=== PATIENT | female | born 1960 | race Caucasian/White ===

== ENCOUNTER 2016-11-09 19:46 | Emergency (ER) | payer MEDICAID, MEDICARE, OTHER ==
[~2016-11-09 19:46] MED LIST: ATEN25TA PO; CYMB60CA3 PO; DOCU10CA PO; DOCU10ELUD PO; FERR325T3 PO; GABA300C2 PO; GLIP5TAB2 PO; LEVO500T32 PO; PERC5TAB PO; TRAZ100T2 PO; TYLE325T5 PO
[2016-11-09] MEDS ORDERED: TRAD5TAB PO (19:58)
[2016-11-09] MEDS ORDERED: NEUR600T PO (19:58)
[2016-11-09] MEDS ORDERED: ASPI81TA85 PO (19:58)
[2016-11-09] MEDS ORDERED: NORCO, ANEXSIA 5/325MG TABLET (HYDROcodone/ACETAMINOPHEN) PO ONE (20:00)
--- NOTE | 2016-11-09 21:40 | REPUSA ---
CT of the head Clinical history: Trauma. Technique: Multiple axial CT images were obtained through the head without administration of contrast . Comparison: None. Findings: The ventricles and sulci are symmetric bilaterally. A left cerebellar arachnoid cyst is not ed. There is no evidence of acute hemorrhage or infarct. There is no midline shift, mass effect, or e xtra-axial fluid collection. The osseous structures are unremarkable. The visualized paranasal sinuse s and mastoid air cells are clear. Impression: Negative study.
--- NOTE | 2016-11-09 21:40 | REPUSA ---
CT of the cervical spine Clinical history: Pain. Technique: Multiple axial CT images were obtained through the cervical spine without administration o f contrast. Coronal and sagittal 3-D reconstructed images were also obtained. Comparison: None. Findings: The cervical vertebral bodies are in satisfactory positioning and alignment. No fractures or dislocat ions are demonstrated. The odontoid process is intact. Intervertebral disc spaces are well-maintained . Minimal disc osteophyte complexes are seen at C4/C5 and C5/C6. There is no evidence of facet sublux ation. The neural foramen appear grossly patent. The cervical cranial junction is intact. The cervica l spinal canal demonstrates normal caliber and contour without evidence of spinal stenosis. The surro unding soft tissues are within normal limits. Impression: No acute fracture or traumatic injury. Mild spondylosis.
[2016-11-09 22:10] VITALS: BP 148/81
--- NOTE | 2016-11-10 08:39 | REP ---
Right knee series: AP and lateral study. History: Trauma. Findings: AP and lateral views are obtained as requested. These show normal bones, joints, and soft tissues. No fracture or subluxation is seen. Impression: Negative two-view right knee series. Signed by Jeff Ace MD 11/10/2016 12:57 P
== END 2016-11-09 22:12 | disposition home or self-care (01) ==
LOC: EDBD 19:46 → M ED 20:43
DX: S00.93XA Contusion of unspecified part of head, initial encounter (principal); S80.11XA Contusion of right lower leg, initial encounter; W08.XXXA Fall from other furniture, initial encounter; Y92.099 Unspecified place in other non-institutional residence as the place of occurrence of the external cause; Y93.9 Activity, unspecified; Y99.9 Unspecified external cause status; M47.892 Other spondylosis, cervical region; E11.9 Type 2 diabetes mellitus without complications; I10 Essential (primary) hypertension; F32.9 Major depressive disorder, single episode, unspecified; Z79.82 Long term (current) use of aspirin; Z79.84 Long term (current) use of oral hypoglycemic drugs; Z79.899 Other long term (current) drug therapy; Z88.8 Allergy status to other drugs, medicaments and biological substances

== ENCOUNTER 2017-03-14 16:37 | Emergency (ER) | payer MEDICAID, MEDICARE, OTHER ==
[~2017-03-14] VITALS: Ht 167.6 cm; Wt 100.0 kg
[~2017-03-14 16:37] MED LIST changes: +ASPI81TA85 PO; +LEVO500T3 PO; -LEVO500T32 PO; +NEUR600T PO; +TRAD5TAB PO
[2017-03-14 19:23] LABS: MEAN CORPUSCULAR HEMOGLOBIN 29.3 pg (27.0-33.0); MEAN CORPUSCULAR HGB CONC 33.2 g/dl (32.0-36.5); MEAN CORPUSCULAR VOLUME 88.3 fl (80.0-96.0); RED CELL DISTRIBUTION WIDTH 12.5 % (11.5-14.5); WHITE BLOOD COUNT 8.3 10^3/uL (4.0-10.0)
[2017-03-14 19:42] LABS: METHADONE URINE NEGATIVE (NEGATIVE)
[2017-03-14 20:03] LABS: ALBUMIN 4.1 GM/DL (3.2-5.2); ALKALINE PHOSPHATASE 80 U/L (45-117); ALT/SGPT 29 U/L (12-78); ANION GAP 9 MEQ/L (8-16); AST/SGOT 20 U/L (15-37); BILIRUBIN,DIRECT < 0.1 MG/DL (0.0-0.2); BILIRUBIN,TOTAL 0.3 MG/DL (0.2-1.0); BLOOD UREA NITROGEN 15 MG/DL (7-18); CALCIUM LEVEL 8.9 MG/DL (8.5-10.1); CARBON DIOXIDE LEVEL 28 MEQ/L (21-32); CHLORIDE LEVEL 101 MEQ/L (98-107); CREATININE FOR GFR 0.89 MG/DL (0.55-1.02); GLOMERULAR FILTRATION RATE > 60.0 (>51); GLUCOSE, FASTING 115 MG/DL (70-105); POTASSIUM SERUM 4.2 MEQ/L (3.5-5.1); SODIUM LEVEL 138 MEQ/L (136-145); TOTAL PROTEIN 8.2 GM/DL (6.4-8.2)
--- NOTE | 2017-03-14 20:30 | REPUSA ---
CT of the head Clinical history: mass. Comparison: 11/09/2016 Technique: Multiple axial CT images were obtained through the head without administration of contrast . Findings: The ventricles and sulci are symmetric bilaterally. There is no evidence of acute hemorrhag e or infarct. Extra-axial fluid in the left cerebellar fossa stable. There is no midline shift or mas s effect. The osseous structures are unremarkable. The visualized paranasal sinuses and mastoid air c ells are clear. Impression: No acute findings.
[2017-03-14 21:00] VITALS: BP 142/95
== END 2017-03-14 21:03 | disposition home or self-care (01) ==
LOC: M ED 16:37
DX: F41.9 Anxiety disorder, unspecified (principal); Z79.82 Long term (current) use of aspirin; Z79.899 Other long term (current) drug therapy; Z88.8 Allergy status to other drugs, medicaments and biological substances
CPT/HCPCS: 36415; 70450; 80048; 80076; 80307; 84443; 85027; 99283; G0480

== ENCOUNTER 2017-06-04 18:19 | Emergency (ER) | payer MEDICARE, MEDICAID, OTHER ==
[2017-06-04] MEDS: NORCO, ANEXSIA 5/325MG TABLET (HYDROcodone/ACETAMINOPHEN) PO (20:58)
[2017-06-04] MEDS: NORCO 5/325MG TABLET (BULK FOR ED) PO (22:30)
== END 2017-06-04 22:41 | disposition home or self-care (01) ==
LOC: M ED 18:19
DX: M71.22 Synovial cyst of popliteal space [Baker], left knee (principal); R29.818 Other symptoms and signs involving the nervous system; I51.9 Heart disease, unspecified; H91.90 Unspecified hearing loss, unspecified ear; K21.9 Gastro-esophageal reflux disease without esophagitis; N39.9 Disorder of urinary system, unspecified; E11.9 Type 2 diabetes mellitus without complications; M54.5 Low back pain; F41.9 Anxiety disorder, unspecified; F32.9 Major depressive disorder, single episode, unspecified; Z79.82 Long term (current) use of aspirin; Z79.899 Other long term (current) drug therapy; Z88.8 Allergy status to other drugs, medicaments and biological substances
CPT/HCPCS: 73564

== ENCOUNTER → 2017-12-29 | Outpatient (REF) | payer MEDICARE, MEDICAID ==
[2017-12-30 14:27] LABS: ANTINUCLEAR ANTIBODIES DIRECT Negative (Negative)
== END ==
LOC: M LAB REF 12:08
DX: M79.606 Pain in leg, unspecified (principal); M79.603 Pain in arm, unspecified
CPT/HCPCS: 86038

== ENCOUNTER 2018-06-20 17:55 | Emergency (ER) | payer MEDICAID, MEDICARE, OTHER ==
[~2018-06-20] VITALS: Ht 160 cm; Wt 90.0 kg
[2018-06-20 17:55] VITALS: BP 161/71
[~2018-06-20 17:55] MED LIST changes: +NAPR-50 PO
[2018-06-20] MEDS ORDERED: ACETAMINOPHEN 325 MG TAB PO ONE (19:00)
--- NOTE | 2018-06-21 06:34 | REP ---
Left ankle: Four views. History: Pain after fall. Findings: Four views of the left ankle demonstrate an intact ankle mortise. There is a large plantar calcaneal spur and a fairly large Achilles calcaneal spur is noted. There is also spurring at the posterior aspect of the subtalar joint. These findings are unchanged from the March 14, 2013 prior radiographs. Impression: Lateral soft tissue swelling. No fracture seen. Heel spurring as above. Electronically Signed by Jeff Ace MD 06/21/2018 08:13 A
== END 2018-06-20 19:03 | disposition home or self-care (01) ==
LOC: M ED 17:55
DX: S82.832A Other fracture of upper and lower end of left fibula, initial encounter for closed fracture (principal); W10.8XXA Fall (on) (from) other stairs and steps, initial encounter; Y92.008 Other place in unspecified non-institutional (private) residence as the place of occurrence of the external cause; E11.9 Type 2 diabetes mellitus without complications; F33.9 Major depressive disorder, recurrent, unspecified; F41.9 Anxiety disorder, unspecified; H91.90 Unspecified hearing loss, unspecified ear; Z79.899 Other long term (current) drug therapy; Z79.82 Long term (current) use of aspirin; Z88.8 Allergy status to other drugs, medicaments and biological substances

== ENCOUNTER 2019-02-17 00:36 | Emergency (ER) | payer MEDICARE ==
[~2019-02-17] VITALS: Ht 160 cm; Wt 81.8 kg
[~2019-02-17 00:36] MED LIST changes: -DOCU10ELUD PO; +DOCU5LIQ PO; -NAPR-50 PO; +NAPR-837 PO
[2019-02-17 01:01] LABS: BASO % 0.6 % (0.0-1.0); EOS # 0.1 10^3/uL (0.0-0.5); EOS % 1.3 % (0.0-3.0); HEMATOCRIT 37.7 % (36.0-47.0); HEMOGLOBIN 12.9 g/dl (12.0-15.5); LYMPH # 4.1 10^3/uL (1.5-5.0); LYMPH % 56.8 % (24.0-44.0); MEAN CORPUSCULAR HEMOGLOBIN 30.5 pg (27.0-33.0); MEAN CORPUSCULAR HGB CONC 34.2 g/dl (32.0-36.5); MEAN CORPUSCULAR VOLUME 89.1 fl (80.0-96.0); MONO # 0.6 10^3/uL (0.0-0.8); MONO % 7.7 % (0.0-5.0); NEUTROPHILS # 2.4 10^3/uL (1.5-8.5); NEUTROPHILS % 33.5 % (36.0-66.0); PLATELET COUNT, AUTOMATED 259 10^3/uL (150-450); RED BLOOD COUNT 4.23 10^6/uL (4.00-5.40); WHITE BLOOD COUNT 7.2 10^3/uL (4.0-10.0)
[2019-02-17 01:16] LABS: INR 0.95; PROTHROMBIN TIME 12.4 SECONDS (11.8-14.0)
[2019-02-17 01:38] LABS: BLOOD UREA NITROGEN 14 MG/DL (7-18); CALCIUM LEVEL 9.7 MG/DL (8.8-10.2); CARBON DIOXIDE LEVEL 27 MEQ/L (21-32); CHLORIDE LEVEL 102 MEQ/L (98-107); CREATININE FOR GFR 0.93 MG/DL (0.55-1.30); GLOMERULAR FILTRATION RATE > 60.0 (>45); GLUCOSE, FASTING 164 MG/DL (70-100); POTASSIUM SERUM 3.7 MEQ/L (3.5-5.1); SODIUM LEVEL 137 MEQ/L (136-145)
[2019-02-17 01:44] LABS: ALBUMIN 3.8 GM/DL (3.2-5.2); ALT/SGPT 27 U/L (12-78); BILIRUBIN,DIRECT 0.2 MG/DL (0.0-0.2); BILIRUBIN,TOTAL 0.5 MG/DL (0.2-1.0); CK-MB VALUE MASS 1.4 NG/ML (<3.6); CPK CREATINE PHOSPHOKINASE 122 U/L (26-192); LIPASE 174 U/L (73-393); MB/CK RELATIVE INDEX 1.15 (< OR =4); TOTAL PROTEIN 7.8 GM/DL (6.4-8.2); TROPONIN I < 0.02 NG/ML (< 0.10)
[2019-02-17] MEDS ORDERED: ISOVUE-370 76% 100ML VIAL (Q9967) As Ordered ONE (02:06)
[2019-02-17] MEDS ORDERED: NITROGLYCERIN 0.4 MG SUBL TABLET SL STA (03:03)
[2019-02-17 03:33] VITALS: BP 105/65
--- NOTE | 2019-02-17 04:24 | REPVR ---
EXAM: CT Angiography Chest With Contrast EXAM DATE/TIME: 02/17/2019 1:49 AM CLINICAL HISTORY: 58 years old, female; Chest pain; Type not specified TECHNIQUE: Imaging protocol: Computed tomographic angiography of the chest with intravenous contrast. 3D rendering: MIP reconstructed images were created and reviewed. Radiation optimization: All CT scans at this facility use at least one of these dose optimization techniques: automated exposure control; mA and/or kV adjustment per patient size (includes targeted exams where dose is matched to clinical indication); or iterative reconstruction. Contrast material: ISO; Contrast volume: 75 ml; Contrast route: AC; COMPARISON: CR PORTABLE CHEST X-RAY 02/17/2019 12:59 AM FINDINGS: Limitations: There is motion artifact. Pulmonary arteries: Assessment is limited in some locations due to motion artifact, especially in the bilateral lower lobes. The central pulmonary arteries are borderline in size, with the pulmonary trunk measuring 3.0 cm in diameter. No filling defects are seen to indicate an acute pulmonary embolism. Aorta: The aorta demonstrates mild atherosclerotic calcification. The contrast bolus was not timed for optimal assessment of the thoracic aorta, but there is no sign of thoracic aortic dissection. Lungs: Motion artifact limits the assessment of the lungs. There is mild diffuse groundglass opacity in the lungs, with geographic lucencies, especially in the bilateral upper lobes. 2 small calcified granulomata are noted in the left upper lobe. Lung volumes are relatively shallow bilaterally. There is a band of density in the right middle cannot also visible on the x-ray, which may be atelectasis or scar. Pleural space: There are no pleural effusions present. Heart: The heart is normal in size. Gallbladder and bile ducts: There has been a cholecystectomy. Lymph nodes: No lymphadenopathy is seen. Bones/joints: Mild degenerative endplate changes are noted in the visualized spine. Soft tissues: Unremarkable. Other findings: Pneumonitis. IMPRESSION: 1. Examination significantly limited by motion artifact. Although no definite filling defects are seen to indicate acute pulmonary embolism, pulmonary emboli could be missed, especially in the bilateral lower lobes. 2. Low lung volumes. Mild diffuse ground glass opacity in the lungs with areas of geographic lucency may be related to incomplete expansion of the lungs with areas of air trapping, or may be a mild pneumonitis with areas of sparing. Electronically signed by: Christina De Luna On 02/17/2019 04:23:46 AM
[2019-02-17 07:05] LABS: CK-MB VALUE MASS 1.1 NG/ML (<3.6); CPK CREATINE PHOSPHOKINASE 94 U/L (26-192); MB/CK RELATIVE INDEX 1.17 (< OR =4); TROPONIN I < 0.02 NG/ML (< 0.10)
[2019-02-17 07:30] VITALS: BP 111/57
[2019-02-17] MEDS ORDERED: ASPI81TA85 PO (07:30)
--- NOTE | 2019-02-17 09:19 | REP ---
CHEST, SINGLE VIEW: Single view of the chest is performed. There is mild elevation of the right hemidiaphragm. There is linear fibroatelectatic change in each lung base without consolidative infiltrate. The heart is not enlarged. Mediastinal silhouette is unremarkable. IMPRESSION: Mild bibasilar fibroatelectatic change without acute infiltrate. Electronically Signed by Derrick Travis MD 02/17/2019 11:39 A
--- NOTE | 2019-02-17 20:25 | ECGEPIP ---
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
--- NOTE | 2019-02-17 20:29 | ECGEPIP ---
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
--- NOTE | 2019-02-22 12:51 | ED PDOC ---
Post-Departure Follow-Up noel oconnell faxed formal report of cta chest for fu Todd Bass MD Feb 22, 2019 12:51
== END 2019-02-17 07:42 | disposition home or self-care (01) ==
LOC: EEVIPCON 00:36 → EDBD 00:36 → M ED 00:36
DX: R07.9 Chest pain, unspecified (principal); E11.9 Type 2 diabetes mellitus without complications; K21.9 Gastro-esophageal reflux disease without esophagitis; F32.9 Major depressive disorder, single episode, unspecified; Z87.891 Personal history of nicotine dependence; Z88.8 Allergy status to other drugs, medicaments and biological substances; Z79.82 Long term (current) use of aspirin; Z79.899 Other long term (current) drug therapy
CPT/HCPCS: 71045; 71275; 80048; 80076; 81001; 82550; 82553; 83690; 84484; 85025; 85610; 93005; 93041; 94760; 99285; Q9967

== ENCOUNTER → 2019-03-09 | Outpatient (CLI) | payer MEDICARE ==
[~2019-03-09] MED LIST changes: +ISOVUE-370 76% 100ML VIAL (Q9967) As Ordered ONE
--- NOTE | 2019-03-09 17:36 | REP ---
CT of the chest with IV contrast: Comparison are 02/17/2019 and 1`07/03/08. There are no emboli in the pulmonary trunk or central pulmonary arteries. There are no emboli in the pulmonary lobe or segment branches. There is a focal ground-glass density inferiorly in the anterior segment right upper lobe, similar to the prior study. On the sagittal coronal reformats. This has the appearance of discoid atelectasis versus ensuing parenchymal scarring. It is unchanged from the comparison study. There is a very small ground-glass density at the inferior tip of the lingula, also having the appearance of discoid atelectasis on the sagittal coronal reformats, versus ensuing parenchymal scarring. There are no other infiltrates. No pleural effusions. There are no masses or nodules. Lung roman otherwise clear. The thoracic aorta is unremarkable. Cardiac size is normal. There is no pericardial effusion. There is no mediastinal or hilar lymphadenopathy. There is an enlarged node in the left axilla measuring 10 mm short axis. This node measured 8 mm on 02/17/2019 and 7 mm on 05/03/2009. Mammography is recommended for follow up. The visualized upper abdominal contents are unremarkable except that there are surgical clips in the gallbladder fossa. Impression: There are no pulmonary emboli. Discoid atelectasis inferiorly in the anterior segment of the right upper lobe versus ensuing parenchymal scarring. Small focal zone of discoid atelectasis versus ensuing parenchymal scarring at the inferior tip of the lingula. There is an enlarged node in the left axilla as described. Recommend mammography for follow up. Cholecystectomy. Electronically Signed by Derrick Garcia MD 03/09/2019 05:28 P
== END ==
LOC: M RAD 15:39
PROVIDERS: ATTEND Nurse Practitioner Adult Health
DX: R91.8 Other nonspecific abnormal finding of lung field (principal)
CPT/HCPCS: 71260; Q9967

== ENCOUNTER → 2019-08-11 | Outpatient (CLI) | payer MEDICARE ==
[~2019-08-11] MED LIST changes: -ISOVUE-370 76% 100ML VIAL (Q9967) As Ordered ONE
== END ==
LOC: M LAB 11:19
PROVIDERS: ATTEND Nurse Practitioner Adult Health
DX: M79.661 Pain in right lower leg (principal)

== ENCOUNTER 2020-09-23 19:48 | Emergency (ER) | payer MEDICARE ==
[~2020-09-23] VITALS: Ht 160 cm; Wt 84.5 kg
[~2020-09-23 19:48] MED LIST changes: -ASPI81TA85 PO; +ASPI81TA86 PO
[2020-09-23 20:00] VITALS: BP 115/61
[2020-09-23 20:30] LABS: BASO # 0.1 10^3/uL (0.0-0.2); BASO % 0.8 % (0.0-1.0); EOS # 0.2 10^3/uL (0.0-0.5); EOS % 3.3 % (0.0-3.0); HEMATOCRIT 37.6 % (36.0-47.0); HEMOGLOBIN 12.2 g/dl (12.0-15.5); LYMPH # 2.9 10^3/uL (1.5-5.0); LYMPH % 43.7 % (24.0-44.0); MEAN CORPUSCULAR HGB CONC 32.4 g/dl (32.0-36.5); MEAN CORPUSCULAR VOLUME 92.6 fl (80.0-96.0); MONO # 0.6 10^3/uL (0.0-0.8); NEUTROPHILS # 2.8 10^3/uL (1.5-8.5); NEUTROPHILS % 42.9 % (36.0-66.0); PLATELET COUNT, AUTOMATED 275 10^3/uL (150-450); RED BLOOD COUNT 4.06 10^6/uL (4.00-5.40); WHITE BLOOD COUNT 6.6 10^3/uL (4.0-10.0)
--- NOTE | 2020-09-23 20:32 | REPVR ---
PROCEDURE INFORMATION: Exam: XR Chest Exam date and time: 09/23/2020 8:14 PM Age: 60 years old Clinical indication: Chest pain; Type not specified TECHNIQUE: Imaging protocol: XR of the chest. Views: 1 view. COMPARISON: CT Chest with contrast 03/09/2019 3:58 PM FINDINGS: Lungs: Unremarkable. No consolidation. Pleural spaces: Unremarkable. No pleural effusion. No pneumothorax. Heart/Mediastinum: Unremarkable. No cardiomegaly. Bones/joints: Unremarkable. IMPRESSION: No acute findings. Electronically signed by: Jonatan Ortiz On 09/23/2020 20:32:42 PM
[2020-09-23] MEDS ORDERED: NITROGLYCERIN 0.4 MG SUBL TABLET SL STA (20:38)
[2020-09-23] MEDS ORDERED: ASPIRIN 81 MG CHEW TABLET PO ONE (20:40)
[2020-09-23 20:44] LABS: BLOOD UREA NITROGEN 13 MG/DL (7-18); CALCIUM LEVEL 8.6 MG/DL (8.8-10.2); CARBON DIOXIDE LEVEL 30 MEQ/L (21-32); CHLORIDE LEVEL 102 MEQ/L (98-107); CK-MB VALUE MASS 2.8 NG/ML (<3.6); CPK CREATINE PHOSPHOKINASE 188 U/L (26-192); CREATININE FOR GFR 0.88 MG/DL (0.55-1.30); GLOMERULAR FILTRATION RATE > 60.0 (>45); GLUCOSE, FASTING 137 MG/DL (70-100); MB/CK RELATIVE INDEX 1.49 (< OR =4); SODIUM LEVEL 139 MEQ/L (136-145); TROPONIN I < 0.02 NG/ML (< 0.10)
--- NOTE | 2020-09-23 20:54 | REPVR ---
PROCEDURE INFORMATION: Exam: CT Head Without Contrast Exam date and time: 09/23/2020 8:42 PM Age: 60 years old Clinical indication: Dizziness TECHNIQUE: Imaging protocol: Computed tomography of the head without contrast. Radiation optimization: All CT scans at this facility use at least one of these dose optimization techniques: automated exposure control; mA and/or kV adjustment per patient size (includes targeted exams where dose is matched to clinical indication); or iterative reconstruction. COMPARISON: CT Head without contrast 03/14/2017 8:04 PM FINDINGS: Brain: Redemonstration of fluid mass in extra-axial space on the left of the posterior fossa. Findings compatible with a arachnoid cyst. This mass effect on the left cerebellar hemisphere with 4 mm of [id number] midline shift. Findings are stable. There is mild diffuse cerebellar atrophy. Cerebral ventricles: No ventriculomegaly. Bones/joints: Unremarkable. No acute fracture. Paranasal sinuses: Visualized sinuses are unremarkable. No fluid levels. Mastoid air cells: Visualized mastoid air cells are well aerated. Soft tissues: Unremarkable. IMPRESSION: 1. Redemonstration of fluid mass in extra-axial space on the left of the posterior fossa. Findings compatible with a arachnoid cyst. This mass effect on the left cerebellar hemisphere with 4 mm of [id number] midline shift. Findings are stable. 2. There is mild diffuse cerebellar atrophy. 3. No acute intracranial findings. Electronically signed by: Jonatan Ortiz On 09/23/2020 20:54:27 PM
--- NOTE | 2020-09-24 09:28 | ECGEPIP ---
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
== END 2020-09-24 00:03 | disposition left against medical advice (07) ==
LOC: M ED 19:48
DX: R07.9 Chest pain, unspecified (principal); Z53.20 Procedure and treatment not carried out because of patient's decision for unspecified reasons; E11.9 Type 2 diabetes mellitus without complications; Z88.8 Allergy status to other drugs, medicaments and biological substances

== ENCOUNTER → 2020-09-28 | Outpatient (REF) | payer MEDICARE, OTHER, MEDICAID ==
[2020-09-28 18:29] LABS: VITAMIN B12 LEVEL 347 PG/ML (247-911)
== END ==
LOC: M LAB REF 16:42
PROVIDERS: ATTEND Nurse Practitioner Adult Health
DX: R41.3 Other amnesia (principal)

== ENCOUNTER 2021-04-10 01:20 | Emergency (ER) | payer MEDICARE, MEDICAID ==
[~2021-04-10] VITALS: Ht 91.4 cm; Wt 84.1 kg
--- OUTSIDE RECORDS SUMMARY | 2021-04-10 01:30 | CCD ---
Continuity of Care Document (CCD) Created on: 01/22/2021 Sherron Lomas External Reference #: [id number] : 1960 Sex: Female Author Author Kelechi Fischer Sherron L Organization Unknown Address [address] [place] [address] Phone [phone] Care Team Providers Care Instructor Kindergarten Name Role Phone Mercedez Torres AUTM [phone] Problems Active Problems Provider Date Altered mental status Justina Grace M.D. Onset: 10/25/2020 Social History Type Date Description Comments Sex Unknown Allergies, Adverse Reactions, Alerts Active Allergies Reaction Severity Comments Date Metformin 10/25/2020 Medications Active Medications SIG Qnty Indications Ordering Provide r Date Aspirin [address] 1 by mouth every day Unknown Immunizations Description No Information Available Vital Signs Date Vital Result Comment 10/25/2020 2:58pm Height 63 inches 5'3" Weight 189.00 lb BMI (Body Mass Index) 33.5 kg/m2 [place] Body Weight 115 lb Results Description No Information Available Procedures Date Code Description Status 12/12/2020 92818 EEG Recording Awake & Asleep Com pleted 12/12/2020 01029 EEG Recording Awake & Asleep Com pleted 10/25/2020 62375 Office/Outpatient New Moderate M DM 45-59 Minutes Completed Medical Devices Description No Information Available Encounters Type Date Location Provider Dx Diagnosis Office Visit 10/25/2020 12:00p Main office - [place] Justina Grace M.D. 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 12/12/2020 R41.82 Altered mental status, unspecifi ed EEG 12/12/2020 R55 Syncope and collapse Justina cuadra M.D. 12/12/2020 R55 Syncope and collapse EEG 12/12/2020 R41.3 Other amnesia Monique Moralez 12/12/2020 R41.3 Other amnesia EEG 10/25/2020 R55 Syncope and collapse Justina cuadra M.D. 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 10/25/2020 R42 Dizziness and giddiness Justina stone M.D. 10/25/2020 G47.00 Insomnia, unspecified Justina gutiérrez M.D. 10/25/2020 R41.3 Other amnesia Monique Moralez 10/25/2020 R41.82 Altered mental status, unspecifi ed Justina Grace M.D. Plan of Treatment No Information Available Functional Status Description No Information Available Mental Status Description No Information Available Referrals Description No Information Available
--- OUTSIDE RECORDS SUMMARY | 2021-04-10 01:30 | CCD | Continuity of Care Document ---
Author Author Kelechi Fischer Sherron L Organization Unknown Address [address] [place] [address] Phone [phone] Care Team Providers Care Actimize Architect Name Role Phone MelissaMercedez AUTM [phone] Problems Active Problems Provider Date Altered mental [...] lb BMI (Body Mass Index) 33.5 kg/m2 [place] Body Weight 115 lb Results Description No Information Available Procedures Date Code Description Status 01/13/2021 10060 Polysomnography Sleep Staging 4+ Parameters Completed 12/12/2020 16538 EEG Recording Awake & Asleep Com pleted 12/12/2020 18282 EEG Recording Awake & Asleep Com pleted 10/25/2020 52528 Office/Outpatient New Moderate M DM 45-59 Minutes Completed Medical Devices Description No Information Available Encounters Type Date Location Provider Dx Diagnosis Office Visit 10/25/2020 12:00p [place] M[place] 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 01/13/2021 R06.83 Snoring Ashwin Gonzalez M.D. 12/12/2020 R41.82 Altered mental status, unspecifi [...]
--- OUTSIDE RECORDS SUMMARY | 2021-04-10 01:31 | CCD ---
Author Author [facility] Organization [facility] Address Unknown Phone Unavailable Care Team Providers Care Geospatial Information Scientist Name Role Phone ANISA MITCHELL MD Unavailable Unavailable ANISA MITCHELL MD Unavailable Unavailable ANISA MITCHELL MD Unavailable Unavailable ANISA MITCHELL MD Unavailable Unavailable ANISA MITCHELL MD Unavailable Unavailable ANISA MITCHELL MD Unavailable Unavailable ANISA MITCHELL MD Unavailable Unavailable ANISA MITCHELL MD Unavailable Unavailable ANISA MITCHELL MD Unavailable Unavailable ANISA MITCHELL MD Unavailable Unavailable ANISA MITCHELL MD Unavailable Unavailable ANISA MITCHELL MD Unavailable Unavailable ANISA MITCHELL MD Unavailable Unavailable ANISA MITCHELL MD Unavailable Unavailable ANISA MITCHELL MD Unavailable Unavailable ANISA MITCHELL MD Unavailable Unavailable ANISA MITCHELL MD Unavailable Unavailable ANISA MITCHELL MD Unavailable Unavailable ANISA MITCHELL MD Unavailable Unavailable ANISA MITCHELL MD Unavailable Unavailable ANISA MITCHELL MD Unavailable Unavailable ANISA MITCHELL MD Unavailable Unavailable ANISA MITCHELL MD Unavailable Unavailable ANISA MITCHELL MD Unavailable Unavailable ANISA MITCHELL MD Unavailable Unavailable ANISA MITCHELL MD Unavailable Unavailable ANISA MITCHELL MD Unavailable Unavailable ANISA MITCHELL MD Unavailable Unavailable ANISA MITCHELL MD Unavailable Unavailable ANISA MITCHELL MD Unavailable Unavailable ANISA MITCHELL MD Unavailable Unavailable ANISA MITCHELL MD Unavailable Unavailable ANISA MITCHELL MD Unavailable Unavailable ANISA MITCHELL MD Unavailable Unavailable ANISA MITCHELL MD Unavailable Unavailable ANISA MITCHELL MD Unavailable Unavailable ANISA MITCHELL MD Unavailable Unavailable ANISA MITCHELL MD Unavailable Unavailable ANISA MITCHELL MD Unavailable Unavailable ANISA MITCHELL MD Unavailable Unavailable ANISA MITCHELL MD Unavailable Unavailable ANISA MITCHELL MD Unavailable Unavailable ANISA MITCHELL MD Unavailable Unavailable LINDA, J Mercedez ANP Unavailable Unavailable LINDA, J Mercedez ANP Unavailable Unavailable LINDA, J Mercedez ANP Unavailable Unavailable LINDA, J Mercedez ANP Unavailable Unavailable LINDA, J Mercedez ANP Unavailable Unavailable LINDA, J Mercedez ANP Unavailable Unavailable LINDA, J Mercedez ANP Unavailable Unavailable LINDA, J Mercedez ANP Unavailable Unavailable LINDA, J Mercedez ANP Unavailable Unavailable LINDA, J Mercedez ANP Unavailable Unavailable LINDA, J Mercedez ANP Unavailable Unavailable LINDA, J Mercedez ANP Unavailable Unavailable LINDA, J Merceedz ANP Unavailable Unavailable LINDA, J Mercedez ANP Unavailable Unavailable LINDA, J Mercedez ANP Unavailable Unavailable LINDA, J Mercedez ANP Unavailable Unavailable LINDA, J Mercedez ANP Unavailable Unavailable LINDA, J Mercedez ANP Unavailable Unavailable LINDA, J Mercedez ANP Unavailable Unavailable LINDA, J Mercedez ANP Unavailable Unavailable LINDA, J Mercedez ANP Unavailable Unavailable LINDA, J Mercedez ANP Unavailable Unavailable LINDA, J Mercedez ANP Unavailable Unavailable LINDA, J Mercedez ANP Unavailable Unavailable LINDA, J Mercedez ANP Unavailable Unavailable LINDA, J Mercedez ANP Unavailable Unavailable LINDA, J Mercedez ANP Unavailable Unavailable LINDA, J Mercedez ANP Unavailable Unavailable LINDA, J Mercedez ANP Unavailable Unavailable LINDA, J Mercedez ANP Unavailable Unavailable LINDA, J Mercedez ANP Unavailable Unavailable LINDA, J Mercedez ANP Unavailable Unavailable LINDA, J Mercedez ANP Unavailable Unavailable LINDA, J Mercedez ANP Unavailable Unavailable LINDA, J Mercedez ANP Unavailable Unavailable LINDA, J Mercedez ANP Unavailable Unavailable LINDA, J Mercedez ANP Unavailable Unavailable LINDA, J Mercedez ANP Unavailable Unavailable LINDA, J Mercedez ANP Unavailable Unavailable LINDA, J Mercedez ANP Unavailable Unavailable LINDA, J Mercedez ANP Unavailable Unavailable LINDA, J Mercedez ANP Unavailable Unavailable LINDA, J Mercedez ANP Unavailable Unavailable LINDA, J Mercedez ANP Unavailable Unavailable LINDA, J Mercedez ANP Unavailable Unavailable LINDA, J Mercedez ANP Unavailable Unavailable LINDA, J Mercedez ANP Unavailable Unavailable LINDA, J Mercedez ANP Unavailable Unavailable LINDA, J Mercedez ANP Unavailable Unavailable LINDA, J Mercedez ANP Unavailable Unavailable LINDA, J Mercedez ANP Unavailable Unavailable LINDA, J Mercedez ANP Unavailable Unavailable LINDA, J Mercedez ANP Unavailable Unavailable LINDA, J Mercedez ANP Unavailable Unavailable LINDA, J Mercedez ANP Unavailable Unavailable LINDA, J Mercedez ANP Unavailable Unavailable LINDA, J Mercedez ANP Unavailable Unavailable LINDA, J Mercedez ANP Unavailable Unavailable LINDA, J Mercedez ANP Unavailable Unavailable LINDA, J Mercedez ANP Unavailable Unavailable LINDA, J Mercedez ANP Unavailable Unavailable LINDA, J Mecredez ANP Unavailable Unavailable LINDA, J Mercedez ANP Unavailable Unavailable LINDA, J Mercedez ANP Unavailable Unavailable Re-disclosure Warning The records that you are about to access may contain information from federally-assisted alcohol or drug abuse programs. If such information is present, then the following federally mandated warning applies: This information has been disclosed to you from records protected by federal confidentiality rules (42 CFR part 2). The federal rules prohibit you from making any further disclosure of this information unless further disclosure is expressly permitted by the written consent of the person to whom it pertains or as otherwise permitted by 42 CFR part 2. A general authorization for the release of medical or other information is NOT sufficient for this purpose. The Federal rules restrict any use of the information to criminally investigate or prosecute any alcohol or drug abuse patient.The records that you are about to access may contain highly sensitive health information, the redisclosure of which is protected by Article 27-F of the [facility] Public Health law. If you continue you may have access to information: Regarding HIV / AIDS; Provided by facilities licensed or operated by the [facility] Office of Mental Health; or Provided by the [facility] Office for People With Developmental Disabilities. If such information is present, then the following [facility] mandated warning applies: This information has been disclosed to you from confidential records which are protected by state law. State law prohibits you from making any further disclosure of this information without the specific written consent of the person to whom it pertains, or as otherwise permitted by law. Any unauthorized further disclosure in violation of state law may result in a fine or fpc sentence or both. A general authorization for the release of medical or other information is NOT sufficient authorization for further disc losure. Family History Family Member Name Family Member Gender Family Member Status Date o f Status Description Data Source(s) Unknown Unknown Problem [facility] ([facility]) Both sons are alive, one son has Type II diabetes Encounters Encounter Providers Location Date Indications Data Source(s ) Outpatient Attender: ANISA MITCHELL MD Main office - [facility] 10/25/2020 12:00:00 PM EDT [facility] ([facility]) Outpatient Attender: Mercedez Colvin 09/2019 07:15:00 AM EST [facility] ([facility] ) Immunizations Vaccine Date Status Description Data Source(s) COVID-19 VACCINE Moderna 09/20/2020 12:00:00 AM EDT completed [facility] Vaccine Series Complete: YESThis Data wa s Submitted to [facility]. COVID-19 VACCINE Moderna 08/23/2020 12:00:00 AM EDT completed [facility] Vaccine Series Complete: NOThis Data was Submitted to [facility]. pneumococcal polysaccharide PPV23 04/11/2020 07:44:00 AM EST [place] [facility] ([facility]) Influenza, injectable, MDCK, preservative free, oli valent 04/11/2020 07:25:00 AM EST completed [facility] ([facility]) Medications Medication Brand Name Start Date Product Form Dose Route Admi nistrative Instructions Pharmacy Instructions Status Indications Reaction Description Data Source(s) Covid-19 vaccine, Unspecified 09/20/2020 12:00:00 AM EDT completed [facility] ([facility]) Medication administered onsite Covid-19 vaccine, Unspecified 08/30/2020 12:00:00 AM EDT completed [facility] ([facility]) Medication administered onsite Administration Of Flu Vaccine 04/11/2020 12:00:00 AM EST completed [facility] ([facility]) Medication administered onsite Insurance Providers Payer name Policy type / Coverage type Policy ID Covered republican ID Covered republican's relationship to ho Policy Ho Plan Information Medicare Natl Govt Servic Medicare Primary [id number] Self [id number] Medicare C [id number] SELF [id number] V78 Medicare Natl Govt Servic Medicare Primary [id number] Self [id number] Medicare Natl Govt Servic Medicare Primary [id number] Self [id number] Medicare Natl Govt Servic Medicare Primary [id number] Self [id number] Medicare Natl Govt Servic Medicare Primary [id number] Self [id number] MEDICARE [id number] SP [id number] A Medicare Natl Govt Servic Medicare Primary [id number] Self [id number] Medicare Natl Govt Servic Medicare Primary [id number] Self [id number] EXCELL MEDICARE BLUE PPO G [id number] Self [id number] WPS For Life Medigap Part B [id number] Self [id number] WPS For Life Medigap Part B [id number] Self [id number] WPS For Life Medigap Part B [id number] Self [id number] WPS For Life Medigap Part B [id number] Self [id number] WPS For Life Medigap Part B [id number] Self [id number] Todays Option Medicare Commercial [id number] Self [id number] Wellcare/Todays Optmcr Commercial [id number] Self [id number] Wellcare [employer] Health Plans F [id number] SELF [id number] Medicare C [id number] SELF [id number] V78 DME Jurisdiction A [facility] C [id number] SELF [id number] [facility] [place] [facility], [facility] C [id number] S [id number] MEDICARE [id number] SP [id number] MEDICAID [id number] SP [id number] MEDICARE [id number] SP [id number] MEDICARE [id number] SP [id number] A Medicaid Medigap Part B [id number] 01.0 Self [id number] Medicaid Medigap Part B [id number] 01.0 Self [id number] Medicaid Medigap Part B [id number] 01.0 Self [id number] MEDICARE C [id number] S [id number] A FOR LIFE UNAVAILABLE SP U NAVAILABLE MEDICAID W [id number] S [id number] MEDICARE M [id number] S [id number] A EXCELLUS BCBS P [id number] S [id number] MEDICARE BLUE PPO 306 [id number] SP [id number] SELF PAY UNAVAILABLE SP [place] [id number] SP [id number] SELF PAY UNAVAILABLE SP UNAVAILA BLE FOR LIFE [id number] WELLCARE [id number] SP [id number] WELLCARE O [id number] S [id number] MEDICAID -O/P EMERGENCY ROOM [id number] [place] [facility] [place] D [id number] SELF [id number] MEDICARE PART A -O/P [id number] 18 [id number] Medicare C [id number] SELF [id number] V78 MEDICARE C [id number] S [id number] V78 MEDICAID M [id number] S [id number] WELLCARE [id number] SP [id number] [employer] PPO [id number] SP [id number] Medicaid Medigap Part B [id number] 01.0 Self [id number] MEDICARE [id number] SP [id number] V78 TODAYS OPTIONS [id number] SP [id number] MEDICARE [id number] SP [id number] A Medicaid Medigap Part B [id number] 01.0 Self [id number] Medicaid Medigap Part B [id number] 01.0 Self [id number] [facility] UNAVAILABLE UNAVAILABLE Problems, Conditions, and Diagnoses Code Display Name Description Problem Type Effective Dates Data Source(s) [id number] Altered mental status Altered mental status Problem 10/25/2020 12:00:00 AM EDT [facility] ([facility], ) Surgeries/Procedures Procedure Description Date Indications Data Source(s) Polysomnography Sleep Staging 4+ Parameters 01/13/2021 12:00:00 AM EDT [facility] ([facility], ) ELECTROENCEPHALOGRAM W/REC AWAKE&ASLEEP 12/12/2020 12: 00:00 AM EDT [facility] ([facility], ) ELECTROENCEPHALOGRAM W/REC AWAKE&ASLEEP 12/12/2020 12: 00:00 AM EDT [facility] ([facility], ) OFFICE OUTPATIENT NEW 45 MINUTES 10/25/2020 12:00:00 A M EDT [facility] ([facility], ) Results ID Date Data Source [id number] 09/28/2020 11:50:00 AM EDT [facility] ([facility]) Name Value Range Interpretation Code Description Data Janet rce(s) Supporting Document(s) Cobalamin (Vitamin B12) [Mass/volume] in Serum or Plasma Lab oratory test result [facility] Reagin Ab [Presence] in Serum by RPR Laboratory test result [facility] ([facility]) ID Date Data Source [id number] 09/28/2020 11:49:00 AM EDT [facility] ([facility]) Name Value Range Interpretation Code Description Data Janet rce(s) Supporting Document(s) Thyrotropin [Units/volume] in Serum or Plasma by Detec tion limit <= 0.05 mIU/L 1.90 uIU/mL 0.36-3.74 [facility] ([facility] ) ID Date Data Source [id number] 09/28/2020 11:49:00 AM EDT [facility] ([facility]) Name Value Range Interpretation Code Description Data Janet rce(s) Supporting Document(s) Cholesterol in HDL [Mass/volume] in Serum or Plasma 41 mg/dL 35-60 [facility] ([facility]) Cholesterol [Mass/volume] in Serum or Plasma 191 mg/dL 131-200 [facility] ([facility]) Triglyceride [Mass/volume] in Serum or Plasma 215 mg/dL 30-150 [facility] ([facility]) Cholesterol in LDL [Mass/volume] in Serum or Plasma by calcu lation 107 CALC 50-159 [facility]) ID Date Data Source [id number] 09/28/2020 11:49:00 AM EDT [facility] ([facility]) Name Value Range Interpretation Code Description Data Janet rce(s) Supporting Document(s) Glucose [Mass/volume] in Serum or Plasma 139 mg/dL 74-99 [facility] ([facility]) 100-125 mg/dL PRE-DIABETES/FASTING >126 mg/dL DIABETES/FASTING Urea nitrogen [Mass/volume] in Serum or Plasma 19 mg/dL 7-18 [facility] ([facility]) Creatinine 0.8 mg/dL 0.6-1.3 [facility] Potassium [Moles/volume] in Serum or Plasma 4.4 meq/L 3.5-5.1 [facility] ([facility]) Sodium [Moles/volume] in Serum or Plasma 139 meq/L 136-145 [facility] ([facility]) Chloride [Moles/volume] in Serum or Plasma 103 meq/L 98-107 [facility] ([facility]) Carbon dioxide, total [Moles/volume] in Serum or Plasma 31 meq/L 21 -32 [facility] ([facility]) Calcium [Mass/volume] in Serum or Plasma 9.0 mg/dL 8.5-10.1 [facility] ([facility]) Alkaline phosphatase isoenzyme [Units/volume] in Serum or Pl asma 86 mg/dL 46-116 [facility] ([facility]) Total Bilirubin 0.2 mg/dL 0.2-1.0 [facility] ([facility]) Aspartate aminotransferase [Enzymatic activity/volume] in Serum or Plasma 21 U/L 15-37 [facility] ([facility] ) Alanine aminotransferase [Enzymatic activity/volume] in Seru m or Plasma 33 U/L 12-78 [facility] ([facility]) Proteinase 3 Ab [Units/volume] in Serum 8.0 g/dL 6.4-8.2 [facility] ([facility]) Albumin [Mass/volume] in Serum or Plasma 3.8 g/dL 3.4-5.0 [facility] ([facility]) A/G Ratio 0.90 CALC 1.00-1.90 [facility] ([facility]) Glomerular filtration rate/1.73 sq M pre dicted among non-blacks [Volume Rate/Area] in Serum or Plasma by Creatinine-based formula (MDRD) Laboratory test result [facility] ([facility] Glomerular filtration rate/1.73 sq M pre dicted among blacks [Volume Rate/Area] in Serum or Plasma by Creatinine-based formula (MDRD) Laboratory test result [facility] ([facility]) <content>CHRONIC KIDNEY DISEASE STAGING PER NKF</content>
<content></content>
<content>STAGE I & II GFR >= 60 NORMAL TO MILDLY DECREASED</content>
<content>STAGE III GFR 30-59 MODERATELY DECREASED</content>
<content>STAGE IV GFR 15-29 SEVERELY DECREASED</content>
<content>STAGE V GFR <15 VERY LITTLE GFR LEFT</content>
<content>ESRD GFR <15 ON SUSTAINABILITY PROJECT COORDINATOR</content>
<content></content> ID Date Data Source [id number] 09/28/2020 11:49:00 AM EDT [facility]) Name Value Range Interpretation Code Description Data Janet rce(s) Supporting Document(s) Glucose mean value [Mass/volume] in Blood Estimated fr om glycated hemoglobin 171 mg/dL 60-110 [facility] ([facility] ) Hemoglobin A1c/Hemoglobin.total in Blood 7.6 % [facility] ([facility]) Lab Result Notes: Pre-Diabetes 5.7 - 6.4 % Diabetes = or > 6.5% ID Date Data Source [id number] 09/28/2020 11:49:00 AM EDT [facility]) Name Value Range Interpretation Code Description Data Janet rce(s) Supporting Document(s) Leukocytes [#/volume] in Blood by Automated count 4.4 x10*3/UL 4.1-10 .9 [facility]) NOTE: CBC VERIFIED Erythrocytes [#/volume] in Blood by Automated count 4.01 x10*6/UL 4.2 0-6.30 [facility] Hemoglobin [Mass/volume] in Blood 11.9 g/dL 12.0-18.0 [facility] ([facility]) Hematocrit [Volume Fraction] of Blood by Automated count 35.0 % 3 7.0-51.0 [facility] ([facility]) MCV 87.2 fL 80.0-97.0 [facility] ([facility]) MCHC 34.1 g/dL 31.0-38.0 [facility] ([facility]) MCH 29.8 pg 26.0-32.0 [facility] ([facility]) Platelets [#/volume] in Blood by Automated count 293 x10*3/UL 140-440 [facility] ([facility] Erythrocyte distribution width [Ratio] by Automated count 12.4 % 11.6-13.7 [facility] ([facility] Lymph % 42.2 % 10.0-58.5 [facility] ([facility]) MPV 7.9 FL 7.8-11.0 [facility] ([facility]) Lymph # 1.8 x10*3/UL 0.6-4.1 [facility] ([facility]) Neut % 50.3 % 37.0-92.0 [facility] ([facility]) Mid % 7.5 % 1.7-9.3 [facility] ([facility]) Mid # 0.4 x10*3/UL 0.1-0.6 [facility] ([facility]) Neut # 2.2 x10*3/UL 2.0-7.8 [facility] ([facility]) ID Date Data Source [id number] 09/23/2020 08:55:00 PM EDT [facility] ([facility]) Name Value Range Interpretation Code Description Data Janet rce(s) Supporting Document(s) Laboratory test finding (navigational concept) 0.00 ng/mL 0.00-0.08 [facility] ([facility]) ID Date Data Source [id number] 09/23/2020 07:56:00 PM EDT [facility] ([facility]) Name Value Range Interpretation Code Description Data Janet rce(s) Supporting Document(s) Glucose, Fasting 137 mg/dL 70-100 [facility] ([facility]) Creatinine For GFR 0.88 mg/dL 0.55-1.30 [facility] ([facility]) Blood Urea Nitrogen 13 mg/dL 7-18 [facility] ([facility]) Glomerular Filtration Rate Laboratory test result [facility] ([facility]) <content>Units are mL/min/1.73 m2</content>
<content></content>
<content>Chronic Kidney Disease Staging per NKF:</content>
<content></content>
<content>Stage I & II GFR >=60 Normal to Mildly Decreased</content>
<content>Stage III GFR 30- 59 Moderately Decreased</content>
<content>Stage IV GFR 15-29 Severely Decreased</content>
<content>Stage V GFR <15 Very Little GFR Left</content>
<content>ESRD GFR <15 on SUSTAINABILITY PROJECT COORDINATOR</content>
<content></content> Chloride Level 102 meq/L 98-107 [facility] ([facility]) Sodium Level 139 meq/L 136-145 [facility] ([facility]) Potassium Serum 4.0 meq/L 3.5-5.1 [facility] ([facility]) Carbon Dioxide Level 30 meq/L 21-32 [facility] ([facility]) Anion Gap 7 meq/L 8-16 [facility]) Calcium Level 8.6 mg/dL 8.8-10.2 [facility] ([facility]) ID Date Data Source [id number] 09/23/2020 07:56:00 PM EDT [facility] ([facility]) Name Value Range Interpretation Code Description Data Janet rce(s) Supporting Document(s) CK-MB Value Mass 2.8 ng/mL [facility] ([facility]) CPK Creatine Phosphokinase 188 U/L 26-192 [facility] ([facility]) MB/CK Relative Index 1.49 [facility] ([facility]) <content>DIAGNOSIS CRITERIA</content>
<content>MMB ng/ml Relative Index (RI)</content>
<content>NON-AMI < or = 5 N/A</content>
<content>GONZALEZ ZONE > 5 < or = 4</content>
<content>AMI > 5 > 4</content>
<content></content> Troponin I Laboratory test result [facility] ([facility]) <content>Troponin I Reference Interval f or Siemens [place] LOCI:</content>
<content></content>
<content>99th Percentile= 0.00-0.045 ng/ml</content>
<content></content>
<content>Risk Stratification:</content>
<content><= 0.10 ng/ml Decreased Risk for Adverse Clinical</content>
<content>Events.</content>
<content>0.10-1.50 ng/ml Increased Risk for Adverse Clinical</content>
<content>Events. Evaluation of additional</content>
<content>criterion and/or repeat testing in 2-6</content>
<content>hours is suggested to rule out myocardial</content>
<content>damage.</content>
<content>>= 1.50 ng/ml Indicative of Myocardial Injury.</content>
<content></content> ID Date Data Source [id number] 09/23/2020 07:56:00 PM EDT [facility] ([facility]) Name Value Range Interpretation Code Description Data Janet rce(s) Supporting Document(s) White Blood Count 6.6 10 4.0-10.0 [facility] ([facility]) Red Blood Count 4.06 10 4.00-5.40 [facility] ([facility]) Hematocrit 37.6 % 36.0-47.0 [facility] Hemoglobin 12.2 g/dL 12.0-15.5 [facility]) Mean Corpuscular Hemoglobin 30.0 pg 27.0-33.0 [facility] ([facility]) Mean Corpuscular Volume 92.6 fl 80.0-96.0 [facility] ([facility]) Platelet Count, Automated 275 10 150-450 [facility] ([facility]) Red Cell Distribution Width 12.4 % 11.5-14.5 ME DENT ([facility]) Mean Corpuscular HGB Conc 32.4 g/dL 32.0-36.5 MEDE NT ([facility]) Neutrophils % 42.9 % 36.0-66.0 MEDENT ([facility]) Lymph % 43.7 % 24.0-44.0 [facility] Eos % 3.3 % 0.0-3.0 [facility]) [place] % 9.0 % 2.0-8.0 [facility]) Baso % 0.8 % 0.0-1.0 [facility]) Immature Granulocyte % 0.3 % 0-3.0 MEDENT ([facility]) Nucleated Red Blood Cell % 0.0 % 0-0 MED ENT ([facility]) Lymph # 2.9 10 1.5-5.0 [facility]) Neutrophils # 2.8 10 1.5-8.5 [facility] ([facility]) [place] # 0.6 10 0.0-0.8 [facility]) Eos # 0.2 10 0.0-0.5 [facility]) Baso # 0.1 10 0.0-0.2 [facility]) ID Date Data Source [id number] 04/24/2020 12:00:00 AM EST [facility] Patient Name:HOLLIE TROTTER51[id number] Date of : 1960 301 Date of Exam: 04/24/2020KATE Scott [id number]#: Fax: [phone] EXAM: US EXTREMITY, NON-VASCULAR (ST MASS) LIMITEDCLINICAL INFORMATION: Assess for soft tissue mass.Ultrasonography of the posterior left knee in the popliteal fossa.Ultrasonographic evaluation over the region of interest shows a 5.7 x 1.9 x2.8 cm somewhat complex appearing mixed echo cystic structure consistentwith a Chand's cyst.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.Accredited by the [employer] in General Ultrasound.ETHAN Guevara/Vicky you for referring HOLLIE TROTTER to our office.Electronically Signed - MARIE TOSCANO DO 04/25/20 16:07 Name Value Range Interpretation Code Description Data Janet rce(s) Supporting Document(s) ID Date Data Source [id number] 04/11/2020 08:45:00 AM EST MEDENT ([facility]) Name Value Range Interpretation Code Description Data Janet rce(s) Supporting Document(s) Microalbumin Urine 7.5 mg/L 1.3-20.0 [facility] Microalb/Creat Ratio 5.1 ug/mg 0.0-30.0 [facility] Urine Creatinine 148.2 mg/dL 30.0-125.0 MEDENT ([facility]) ID Date Data Source [id number] 04/11/2020 08:45:00 AM EST MEDENT ([facility]) Name Value Range Interpretation Code Description Data Janet rce(s) Supporting Document(s) Cholesterol [Mass/volume] in Serum or Plasma 190 mg/dL 131-200 MEDENT ([facility]) Triglyceride [Mass/volume] in Serum or Plasma 128 mg/dL 30-150 MEDENT ([facility]) Cholesterol in LDL [Mass/volume] in Serum or Plasma by calcu lation 112 CALC 50-159 MEDENT ([facility]) Cholesterol in HDL [Mass/volume] in Serum or Plasma 52 mg/dL 35-60 MEDENT ([facility]) ID Date Data Source [id number] 04/11/2020 08:45:00 AM EST MEDENT ([facility]) Name Value Range Interpretation Code Description Data Janet rce(s) Supporting Document(s) Glucose [Mass/volume] in Serum or Plasma 228 mg/dL 74-99 MEDENT ([facility]) 100-125 mg/dL PRE-DIABETES/FASTING >126 mg/dL DIABETES/FASTING Urea nitrogen [Mass/volume] in Serum or Plasma 10 mg/dL 7-18 MEDENT ([facility]) Creatinine 0.9 mg/dL 0.6-1.3 MEDENT ([facility]) Sodium [Moles/volume] in Serum or Plasma 141 meq/L 136-145 MEDENT ([facility]) Chloride [Moles/volume] in Serum or Plasma 103 meq/L 98-107 MEDENT ([facility]) Potassium [Moles/volume] in Serum or Plasma 4.4 meq/L 3.5-5.1 MEDENT ([facility]) Carbon dioxide, total [Moles/volume] in Serum or Plasma 29 meq/L 21 -32 MEDENT ([facility]) Calcium [Mass/volume] in Serum or Plasma 8.8 mg/dL 8.5-10.1 MEDENT ([facility]) Alkaline phosphatase isoenzyme [Units/volume] in Serum or Pl asma 66 mg/dL 46-116 MEDENT ([facility]) Total Bilirubin 0.3 mg/dL 0.2-1.0 MEDENT ([facility]) Aspartate aminotransferase [Enzymatic activity/volume] in Serum or Plasma 16 U/L 15-37 MEDENT ([facility] ) Albumin [Mass/volume] in Serum or Plasma 3.7 g/dL 3.4-5.0 [facility] Alanine aminotransferase [Enzymatic activity/volume] in Seru m or Plasma 25 U/L 12-78 [facility] Proteinase 3 Ab [Units/volume] in Serum 7.1 g/dL 6.4-8.2 [facility] A/G Ratio 1.09 CALC 1.00-1.90 [facility]) Glomerular filtration rate/1.73 sq M pre dicted among non-blacks [Volume Rate/Area] in Serum or Plasma by Creatinine-based formula (MDRD) Laboratory test result [facility] Glomerular filtration rate/1.73 sq M pre dicted among blacks [Volume Rate/Area] in Serum or Plasma by Creatinine-based formula (MDRD) Laboratory test result [facility] ([facility]) <content>CHRONIC KIDNEY DISEASE STAGING PER NKF</content>
<content></content>
<content>STAGE I & II GFR >= 60 NORMAL TO MILDLY DECREASED</content>
<content>STAGE III GFR 30-59 MODERATELY DECREASED</content>
<content>STAGE IV GFR 15-29 SEVERELY DECREASED</content>
<content>STAGE V GFR <15 VERY LITTLE GFR LEFT</content>
<content>ESRD GFR <15 ON SUSTAINABILITY PROJECT COORDINATOR</content>
<content></content> ID Date Data Source [id number] 04/11/2020 08:45:00 AM EST [facility] Name Value Range Interpretation Code Description Data Janet rce(s) Supporting Document(s) Hemoglobin A1c/Hemoglobin.total in Blood 7.3 % [facility] ([facility]) Lab Result Notes: Pre-Diabetes 5.7 - 6.4 % Diabetes = or > 6.5% Glucose mean value [Mass/volume] in Blood Estimated fr om glycated hemoglobin 163 mg/dL 60-110 [facility] ([facility] ) ID Date Data Source [id number] 04/11/2020 08:45:00 AM EST [facility]) Name Value Range Interpretation Code Description Data Janet rce(s) Supporting Document(s) Erythrocytes [#/volume] in Blood by Automated count 4.16 x10*6/UL 4.2 0-6.30 MEDENT ([facility]) Leukocytes [#/volume] in Blood by Automated count 4.8 x10*3/UL 4.1-10 .9 MED[facility] ([facility]) Hemoglobin [Mass/volume] in Blood 12.4 g/dL 12.0-18.0 MED[facility] ([facility]) Hematocrit [Volume Fraction] of Blood by Automated count 35.6 % 3 7.0-51.0 MED[facility] ([facility]) MCH 29.7 pg 26.0-32.0 [facility] MCV 85.5 fL 80.0-97.0 MED[facility] ([facility]) MCHC 34.8 g/dL 31.0-38.0 MED[facility] ([facility]) Platelets [#/volume] in Blood by Automated count 277 x10*3/UL 140-440 [facility] Erythrocyte distribution width [Ratio] by Automated count 12.2 % 11.6-13.7 MED[facility] ([facility]) Lymph % 35.3 % 10.0-58.5 [facility]) Mid % 7.1 % 1.7-9.3 MED[facility] ([facility]) MPV 8.4 FL 7.8-11.0 MED[facility] ([facility]) Lymph # 1.7 x10*3/UL 0.6-4.1 [facility] ([facility]) Neut % 57.6 % 37.0-92.0 [facility]) Mid # 0.4 x10*3/UL 0.1-0.6 MED[facility] ([facility]) Neut # 2.7 x10*3/UL 2.0-7.8 MED[facility] ([facility]) ID Date Data Source [id number] 04/11/2020 08:45:00 AM EST MEDENT ([facility]) Name Value Range Interpretation Code Description Data Janet rce(s) Supporting Document(s) Hemoglobin A1c/Hemoglobin.total in Blood Laboratory test result [facility] ([facility]) Procedure Social History No Information Vital Signs ID Date Data Source UNK Name Value Range Interpretation Code Description Data Source(s) Body height 63 [in_i] 63 [in_i] MEDENT ([facility], ) 5'3" Body weight 189.00 [lb_av] 189.00 [lb_av] MEDEN T ([facility], ) Body mass index (BMI) [Ratio] 33.5 kg/m2 33.5 k g/m2 [facility] ([facility]) [place] body weight 115 [lb_av] 115 [lb_av] MEDEN T ([facility], ) Heart rate 76 /min 76 /min [facility]) Body height 64 [in_i] 64 [in_i] [facility] ([facility]) 5'4" Body weight 190.00 [lb_av] 190.00 [lb_av] MEDEN T ([facility]) Oxygen saturation in Arterial blood by Pulse oximetry 98 % 98 % [facility] ([facility]) Body mass index (BMI) [Ratio] 32.6 kg/m2 32.6 k g/m2 [facility] ([facility]) Systolic blood pressure 122 mm[Hg] 122 mm[Hg] M EDENT ([facility]) Diastolic blood pressure 70 mm[Hg] 70 mm[Hg] [facility] ([facility]) Body mass index (BMI) [Ratio] 32.1 kg/m2 32.1 k g/m2 [facility] ([facility]) Body height 64 [in_i] 64 [in_i] [facility] ([facility]) 5'4" Body weight 187.00 [lb_av] 187.00 [lb_av] MEDEN T ([facility]) Oxygen saturation in Arterial blood by Pulse oximetry 97 % 97 % [facility] ([facility]) Heart rate 78 /min 78 /min [facility] ([facility])
[2021-04-10] MEDS ORDERED: MORPHINE 4 MG/ML 1ML VIAL/SYRINGE (J2270) IV ONE ×2 (02:30→04:20)
[2021-04-10] MEDS ORDERED: ONDANSETRON 4MG/2ML VIAL IV ONE (02:30)
[2021-04-10] MEDS ORDERED: LR 1,000 ML IV SCH (02:45)
[2021-04-10 02:46] VITALS: BP 124/78
--- OUTSIDE RECORDS SUMMARY | 2021-04-10 03:05 | CCD ---
Author Author [facility] Organization [facility] Address Unknown Phone Unavailable Care Team Providers Care Injection Molding Process Technician Name Role Phone ANISA MITCHELL MD Unavailable [...] is protected by Article 27-F of the [facility] Public Health law. If you continue you may have access to information: Regarding HIV / AIDS; Provided by facilities licensed or operated by the [facility] Office of Mental Health; or Provided by the [facility] Office for People With Developmental Disabilities. If such information is present, then the following [facility] mandated warning applies: This information [...] law may result in a fine or half-way sentence or both. A general authorization for the release of medical or other information is NOT sufficient authorization for further disc losure. Family History Family Member Name Family Member Gender Family Member Status Date o f Status Description Data Source(s) Unknown Unknown Problem [facility] ([facility]) Both sons are alive, one son has Type II diabetes Encounters Encounter Providers Location Date Indications Data Source(s ) Outpatient Attender: ANISA MITCHELL MD Main office - [facility] 10/25/2020 12:00:00 PM EDT [facility] ([facility] nolasco) Outpatient Attender: Mercedez Colvin 09/2019 07:15:00 AM EST [facility] ([facility] ) Immunizations Vaccine Date Status Description Data Source(s) COVID-19 VACCINE Moderna 09/20/2020 12:00:00 AM EDT completed NYSIIS Vaccine Series Complete: YESThis Data wa s Submitted to [facility] Via [facility]. COVID-19 VACCINE Moderna 08/23/2020 12:00:00 AM EDT completed NYSIIS Vaccine Series Complete: NOThis Data was Submitted to [facility] Via [facility]. pneumococcal polysaccharide PPV23 04/11/2020 07:44:00 AM EST [place] [facility] ([facility]) Influenza, injectable, MDCK, preservative free, oli valent 04/11/2020 07:25:00 AM EST completed [facility]) Medications Medication Brand Name Start Date Product Form Dose Route Admi nistrative Instructions Pharmacy Instructions Status Indications Reaction Description Data Source(s) Covid-19 vaccine, Unspecified 09/20/2020 12:00:00 AM EDT completed [facility]) Medication administered onsite Covid-19 vaccine, Unspecified 08/30/2020 12:00:00 AM EDT completed [facility]) Medication administered onsite Administration Of Flu Vaccine 04/11/2020 12:00:00 AM EST completed [facility] ([facility]) Medication administered onsite Insurance Providers Payer name Policy type / Coverage type Policy ID Covered libertarian ID Covered libertarian's relationship to ho Policy Ho Plan Information Medicare Natl Govt Servic Medicare Primary [id number] Self [id number] Medicare C [id number] SELF [id number] [id number] Medicare Natl Govt Servic Medicare Primary [id number] Self [id number] Medicare Natl Govt Servic Medicare Primary [id number] Self [id number] Medicare Natl Govt Servic Medicare Primary [id number] Self [id number] Medicare Natl Govt Servic Medicare Primary [id number] Self [id number] MEDICARE [id number] SP [id number] A Medicare Natl Govt Servic Medicare Primary [id number] Self [id number] Medicare Natl Govt Servic Medicare Primary [id number] Self [id number] EXCELL MEDICARE BLUE PPO G [id number] Self [id number] WPS For Life Medigap Part B [id number] Self [id number] WPS For Life Medigap Part B [id number] Self [id number] WPS For Life Medigap Part B [id number] Self [id number] WPS For Life Medigap Part B [id number] Self [id number] WPS For Life Medigap Part B [id number] Self [id number] Todays Option Medicare Commercial [id number] Self [id number] Well[employer]/Tod[employer]mcr Commercial [id number] Self [id number] Wellcare [employer] Health Plans F [id number] SELF [id number] Medicare C [id number] SELF [id number] V78 DME Jurisdiction A [facility] C [id number] SELF [id number] [facility], [facility] C [id number] S [id number] MEDICARE [id number] SP [id number] MEDICAID [id number] SP [id number] MEDICARE [id number] SP [id number] MEDICARE [id number] SP [id number] A Medicaid Medigap Part B [id number] 01.0 Self [id number] Medicaid Medigap Part B [id number] 01.0 Self [id number] Medicaid Medigap Part B [id number] 01.0 Self [id number] MEDICARE C [id number] S [id number] A FOR LIFE UNAVAILABLE SP U NAVAILABLE MEDICAID W [id number] S [id number] MEDICARE M [id number] S [id number] A EXCELLUS BCBS P [id number] S [id number] MEDICARE BLUE PPO [id number] SP [id number] SELF PAY UNAVAILABLE SP [place]LE [place] [id number] SP [id number] SELF PAY UNAVAILABLE SP UNAVAILA BLE WELLCARE [id number] SP [id number] FOR LIFE [id number] WELLCARE O [id number] S [id number] MEDICAID -O/[id number] EMERGENCY ROOM [id number] Medicaid [facility] Healthcare S D [id number] SELF [id number] MEDICARE PART A -O/P [id number] 18 [id number] Medicare C [id number] SELF [id number] V78 MEDICARE C [id number] S [id number] MEDICAID M [id number] S [id number] WELLCARE [id number] SP [id number] [employer] PPO [id number] SP [id number] Medicaid Medigap Part B [id number] 01.0 Self [id number] MEDICARE [id number] SP [id number] V78 TODAYS OPTIONS [id number] SP [id number] MEDICARE [id number] SP [id number] A Medicaid Medigap Part B [id number] 01.0 Self [id number] Medicaid Medigap Part B [id number] 01.0 Self [id number] [facility] UNAVAILABLE UNAVAILABLE Problems, Conditions, and Diagnoses Code Display Name Description Problem Type Effective Dates Data Source(s) [id number] Altered mental status Altered mental status Problem 10/25/2020 12:00:00 AM EDT [facility] ([facility], ) Surgeries/Procedures Procedure Description Date Indications Data Source(s) Polysomnography Sleep Staging 4+ Parameters 01/13/2021 12:00:00 AM EDT [facility] ([facility], ) ELECTROENCEPHALOGRAM W/REC AWAKE&ASLEEP 12/12/2020 12: 00:00 AM EDT [facility] ([facility] ) ELECTROENCEPHALOGRAM W/REC AWAKE&ASLEEP 12/12/2020 12: 00:00 AM EDT [facility] OFFICE OUTPATIENT NEW 45 MINUTES 10/25/2020 12:00:00 A M EDT [facility] Results ID Date Data Source [id number] 09/28/2020 11:50:00 AM EDT [facility]) Name Value Range Interpretation Code Description Data Janet rce(s) Supporting Document(s) Cobalamin (Vitamin B12) [Mass/volume] in Serum or Plasma Lab oratory test result [facility] Reagin Ab [Presence] in Serum by RPR Laboratory test result [facility] ([facility]) ID Date Data Source [id number] 09/28/2020 11:49:00 AM EDT [facility]) Name Value Range Interpretation Code Description Data Janet rce(s) Supporting Document(s) Thyrotropin [Units/volume] in Serum or Plasma by Detec tion limit <= 0.05 mIU/L 1.90 uIU/mL 0.36-3.74 [facility] ([facility] ) ID Date Data Source [id number] 09/28/2020 11:49:00 AM EDT [facility]) Name Value Range Interpretation Code Description Data Janet rce(s) Supporting Document(s) Cholesterol in HDL [Mass/volume] in Serum or Plasma 41 mg/dL 35-60 [facility]) Cholesterol [Mass/volume] in Serum or Plasma 191 mg/dL 131-200 [facility] ([facility]) Triglyceride [Mass/volume] in Serum or Plasma 215 mg/dL 30-150 [facility] Cholesterol in LDL [Mass/volume] in Serum or Plasma by calcu lation 107 CALC 50-159 [facility] ID Date Data Source [id number] 09/28/2020 11:49:00 AM EDT [facility] ([facility]) Name Value Range Interpretation Code Description Data Janet rce(s) Supporting Document(s) Glucose [Mass/volume] in Serum or Plasma 139 mg/dL 74-99 [facility] ([facility]) 100-125 mg/dL PRE-DIABETES/FASTING >126 mg/dL DIABETES/FASTING Urea nitrogen [Mass/volume] in Serum or Plasma 19 mg/dL 7-18 [facility] ([facility]) Creatinine 0.8 mg/dL 0.6-1.3 [facility] Potassium [Moles/volume] in Serum or Plasma 4.4 meq/L 3.5-5.1 [facility] ([facility]) Sodium [Moles/volume] in Serum or Plasma 139 meq/L 136-145 [facility] ([facility]) Chloride [Moles/volume] in Serum or Plasma 103 meq/L 98-107 [facility] ([facility]) Carbon dioxide, total [Moles/volume] in Serum or Plasma 31 meq/L 21 -32 [facility] ([facility]) Calcium [Mass/volume] in Serum or Plasma 9.0 mg/dL 8.5-10.1 [facility] ([facility]) Alkaline phosphatase isoenzyme [Units/volume] in Serum or Pl asma 86 mg/dL 46-116 [facility] Total Bilirubin 0.2 mg/dL 0.2-1.0 [facility] ([facility]) Aspartate aminotransferase [Enzymatic activity/volume] in Serum or Plasma 21 U/L 15-37 [facility] ([facility] ) Alanine aminotransferase [Enzymatic activity/volume] in Seru m or Plasma 33 U/L 12-78 [facility] ([facility]) Proteinase 3 Ab [Units/volume] in Serum 8.0 g/dL 6.4-8.2 [facility] ([facility]) Albumin [Mass/volume] in Serum or Plasma 3.8 g/dL 3.4-5.0 [facility] ([facility]) A/G Ratio 0.90 CALC 1.00-1.90 [facility]) Glomerular filtration rate/1.73 sq M pre dicted among non-blacks [Volume Rate/Area] in Serum or Plasma by Creatinine-based formula (MDRD) Laboratory test result [facility] Glomerular filtration rate/1.73 sq M pre dicted among blacks [Volume Rate/Area] in Serum or Plasma by Creatinine-based formula (MDRD) Laboratory test result [facility] ([facility]) <content>CHRONIC KIDNEY DISEASE STAGING PER NKF</content>
<content></content>
<content>STAGE I & II GFR >= 60 NORMAL TO MILDLY DECREASED</content>
<content>STAGE III GFR 30-59 MODERATELY DECREASED</content>
<content>STAGE IV GFR 15-29 SEVERELY DECREASED</content>
<content>STAGE V GFR <15 VERY LITTLE GFR LEFT</content>
<content>ESRD GFR <15 ON DIRECTOR COUNCIL ON AGING</content>
<content></content> ID Date Data Source [id number] 09/28/2020 11:49:00 AM EDT [facility]) Name Value Range Interpretation Code Description Data Janet rce(s) Supporting Document(s) Glucose mean value [Mass/volume] in Blood Estimated fr om glycated hemoglobin 171 mg/dL 60-110 [facility] ([facility] ) Hemoglobin A1c/Hemoglobin.total in Blood 7.6 % [facility] ([facility]) Lab Result Notes: Pre-Diabetes 5.7 - 6.4 % Diabetes = or > 6.5% ID Date Data Source [id number] 09/28/2020 11:49:00 AM EDT [facility]) Name Value Range Interpretation Code Description Data Janet rce(s) Supporting Document(s) Leukocytes [#/volume] in Blood by Automated count 4.4 x10*3/UL 4.1-10 .9 [facility] NOTE: CBC VERIFIED Erythrocytes [#/volume] in Blood by Automated count 4.01 x10*6/UL 4.2 0-6.30 [facility] Hemoglobin [Mass/volume] in Blood 11.9 g/dL 12.0-18.0 [facility] Hematocrit [Volume Fraction] of Blood by Automated count 35.0 % 3 7.0-51.0 [facility] ([facility]) MCV 87.2 fL 80.0-97.0 [facility] ([facility]) MCHC 34.1 g/dL 31.0-38.0 [facility] ([facility]) MCH 29.8 pg 26.0-32.0 [facility] ([facility]) Platelets [#/volume] in Blood by Automated count 293 x10*3/UL 140-440 [facility] Erythrocyte distribution width [Ratio] by Automated count 12.4 % 11.6-13.7 [facility] Lymph % 42.2 % 10.0-58.5 [facility] ([facility]) MPV 7.9 FL 7.8-11.0 [facility] ([facility]) Lymph # 1.8 x10*3/UL 0.6-4.1 [facility] ([facility]) Neut % 50.3 % 37.0-92.0 [facility] ([facility]) Mid % 7.5 % 1.7-9.3 [facility] ([facility]) Mid # 0.4 x10*3/UL 0.1-0.6 [facility] ([facility]) Neut # 2.2 x10*3/UL 2.0-7.8 [facility] ID Date Data Source [id number] 09/23/2020 08:55:00 PM EDT [facility] ([facility]) Name Value Range Interpretation Code Description Data Janet rce(s) Supporting Document(s) Laboratory test finding (navigational concept) 0.00 ng/mL 0.00-0.08 [facility] ([facility]) ID Date Data Source [id number] 09/23/2020 07:56:00 PM EDT [facility] ([facility]) Name Value Range Interpretation Code Description Data Janet rce(s) Supporting Document(s) Glucose, Fasting 137 mg/dL 70-100 [facility] ([facility]) Creatinine For GFR 0.88 mg/dL 0.55-1.30 [facility] ([facility]) Blood Urea Nitrogen 13 mg/dL 7-18 [facility] ([facility]) Glomerular Filtration Rate Laboratory test result [facility] ([facility]) <content>Units are mL/min/1.73 m2</content>
<content></content>
<content>Chronic Kidney Disease Staging per NKF:</content>
<content></content>
<content>Stage I & II GFR >=60 Normal to Mildly Decreased</content>
<content>Stage III GFR 30- 59 Moderately Decreased</content>
<content>Stage IV GFR 15-29 Severely Decreased</content>
<content>Stage V GFR <15 Very Little GFR Left</content>
<content>ESRD GFR <15 on DIRECTOR COUNCIL ON AGING</content>
<content></content> Chloride Level 102 meq/L 98-107 [facility] ([facility]) Sodium Level 139 meq/L 136-145 [facility] ([facility]) Potassium Serum 4.0 meq/L 3.5-5.1 [facility] ([facility]) Carbon Dioxide Level 30 meq/L 21-32 [facility] ([facility]) Anion Gap 7 meq/L 8-16 [facility]) Calcium Level 8.6 mg/dL 8.8-10.2 [facility] ([facility]) ID Date Data Source [id number] 09/23/2020 07:56:00 PM EDT [facility] ([facility]) Name Value Range Interpretation Code Description Data Janet rce(s) Supporting Document(s) CK-MB Value Mass 2.8 ng/mL [facility] ([facility]) CPK Creatine Phosphokinase 188 U/L 26-192 [facility] ([facility]) MB/CK Relative Index 1.49 [facility] ([facility]) <content>DIAGNOSIS CRITERIA</content>
<content>MMB ng/ml Relative Index (RI)</content>
<content>NON-AMI < or = 5 N/A</content>
<content>GONZALEZ ZONE > 5 < or = 4</content>
<content>AMI > 5 > 4</content>
<content></content> Troponin I Laboratory test result [facility] ([facility]) <content>Troponin I Reference Interval f or Siemens [place]pa LOCI:</content>
<content></content>
<content>99th Percentile= 0.00-0.045 ng/ml</content>
<content></content>
<content>Risk Stratification:</content>
<content><= 0.10 ng/ml Decreased Risk for Adverse Clinical</content>
<content>Events.</content>
<content>0.10-1.50 ng/ml Increased Risk for Adverse Clinical</content>
<content>Events. Evaluation of additional</content>
<content>criterion and/or repeat testing in 2-6</content>
<content>hours is suggested to rule out myocardial</content>
<content>damage.</content>
<content>>= 1.50 ng/ml Indicative of Myocardial Injury.</content>
<content></content> ID Date Data Source [id number] 09/23/2020 07:56:00 PM EDT [facility] ([facility]) Name Value Range Interpretation Code Description Data Janet rce(s) Supporting Document(s) White Blood Count 6.6 10 4.0-10.0 [facility] ([facility]) Red Blood Count 4.06 10 4.00-5.40 [facility] ([facility]) Hematocrit 37.6 % 36.0-47.0 [facility] Hemoglobin 12.2 g/dL 12.0-15.5 [facility] Mean Corpuscular Hemoglobin 30.0 pg 27.0-33.0 [facility] ([facility]) Mean Corpuscular Volume 92.6 fl 80.0-96.0 [facility] ([facility]) Platelet Count, Automated 275 10 150-450 [facility] ([facility]) Red Cell Distribution Width 12.4 % 11.5-14.5 [facility] ([facility]) Mean Corpuscular HGB Conc 32.4 g/dL 32.0-36.5 [facility] ([facility]) Neutrophils % 42.9 % 36.0-66.0 [facility] ([facility]) Lymph % 43.7 % 24.0-44.0 [facility]) Eos % 3.3 % 0.0-3.0 [facility]) Cotton % 9.0 % 2.0-8.0 [facility]) Baso % 0.8 % 0.0-1.0 [facility]) Immature Granulocyte % 0.3 % 0-3.0 [facility] ([facility]) Nucleated Red Blood Cell % 0.0 % 0-0 [facility] ([facility]) Lymph # 2.9 10 1.5-5.0 [facility]) Neutrophils # 2.8 10 1.5-8.5 [facility] Cotton # 0.6 10 0.0-0.8 [facility]) Eos # 0.2 10 0.0-0.5 [facility]) Baso # 0.1 10 0.0-0.2 [facility]) ID Date Data Source [id number] 04/24/2020 12:00:00 AM EST [facility] Patient Name:HOLLIE TROTTER51[address] Date of : 1960 301 Date of Exam: 04/24/2020KATE Scott [id number]#: Fax: [phone] EXAM: US EXTREMITY, NON-VASCULAR (ST MASS) LIMITEDCLINICAL INFORMATION: Assess for soft tissue mass.Ultrasonography of the posterior left knee in the popliteal fossa.Ultrasonographic evaluation over the region of interest shows a 5.7 x 1.9 x2.8 cm somewhat complex appearing mixed echo cystic structure consistentwith a Chand's cyst.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.Accredited by the [employer] in General Ultrasound.ETHAN Guevara/Vicky you for referring HOLLIE TROTTER to our office.Electronically Signed - MARIE TOSCANO DO 04/25/20 16:07 Name Value Range Interpretation Code Description Data Janet rce(s) Supporting Document(s) ID Date Data Source [id number] 04/11/2020 08:45:00 AM EST [facility] ([facility]) Name Value Range Interpretation Code Description Data Janet rce(s) Supporting Document(s) Microalbumin Urine 7.5 mg/L 1.3-20.0 [facility] Microalb/Creat Ratio 5.1 ug/mg 0.0-30.0 [facility] Urine Creatinine 148.2 mg/dL 30.0-125.0 [facility] ([facility]) ID Date Data Source [id number] 04/11/2020 08:45:00 AM EST [facility] ([facility]) Name Value Range Interpretation Code Description Data Janet rce(s) Supporting Document(s) Cholesterol [Mass/volume] in Serum or Plasma 190 mg/dL 131-200 [facility] ([facility]) Triglyceride [Mass/volume] in Serum or Plasma 128 mg/dL 30-150 [facility] ([facility]) Cholesterol in LDL [Mass/volume] in Serum or Plasma by calcu lation 112 CALC 50-159 [facility] ([facility]) Cholesterol in HDL [Mass/volume] in Serum or Plasma 52 mg/dL 35-60 [facility] ([facility]) ID Date Data Source [id number] 04/11/2020 08:45:00 AM EST [facility] ([facility]) Name Value Range Interpretation Code Description Data Janet rce(s) Supporting Document(s) Glucose [Mass/volume] in Serum or Plasma 228 mg/dL 74-99 [facility] ([facility]) 100-125 mg/dL PRE-DIABETES/FASTING >126 mg/dL DIABETES/FASTING Urea nitrogen [Mass/volume] in Serum or Plasma 10 mg/dL 7-18 [facility] ([facility]) Creatinine 0.9 mg/dL 0.6-1.3 [facility] ([facility]) Sodium [Moles/volume] in Serum or Plasma 141 meq/L 136-145 [facility] ([facility]) Chloride [Moles/volume] in Serum or Plasma 103 meq/L 98-107 [facility] ([facility]) Potassium [Moles/volume] in Serum or Plasma 4.4 meq/L 3.5-5.1 [facility] ([facility]) Carbon dioxide, total [Moles/volume] in Serum or Plasma 29 meq/L 21 -32 [facility] ([facility]) Calcium [Mass/volume] in Serum or Plasma 8.8 mg/dL 8.5-10.1 [facility] ([facility]) Alkaline phosphatase isoenzyme [Units/volume] in Serum or Pl asma 66 mg/dL 46-116 [facility] ([facility]) Total Bilirubin 0.3 mg/dL 0.2-1.0 [facility] ([facility]) Aspartate aminotransferase [Enzymatic activity/volume] in Serum or Plasma 16 U/L 15-37 [facility] ([facility] ) Albumin [Mass/volume] in Serum or Plasma 3.7 g/dL 3.4-5.0 [facility] Alanine aminotransferase [Enzymatic activity/volume] in Seru m or Plasma 25 U/L 12-78 [facility] Proteinase 3 Ab [Units/volume] in Serum 7.1 g/dL 6.4-8.2 [facility] A/G Ratio 1.09 CALC 1.00-1.90 [facility] Glomerular filtration rate/1.73 sq M pre dicted among non-blacks [Volume Rate/Area] in Serum or Plasma by Creatinine-based formula (MDRD) Laboratory test result [facility] Glomerular filtration rate/1.73 sq M pre dicted among blacks [Volume Rate/Area] in Serum or Plasma by Creatinine-based formula (MDRD) Laboratory test [facility] <content>CHRONIC KIDNEY DISEASE STAGING PER NKF</content>
<content></content>
<content>STAGE I & II GFR >= 60 NORMAL TO MILDLY DECREASED</content>
<content>STAGE III GFR 30-59 MODERATELY DECREASED</content>
<content>STAGE IV GFR 15-29 SEVERELY DECREASED</content>
<content>STAGE V GFR <15 VERY LITTLE GFR LEFT</content>
<content>ESRD GFR <15 ON DIRECTOR COUNCIL ON AGING</content>
<content></content> ID Date Data Source [id number] 04/11/2020 08:45:00 AM EST [facility] Name Value Range Interpretation Code Description Data Janet rce(s) Supporting Document(s) Hemoglobin A1c/Hemoglobin.total in Blood 7.3 % [facility] ([facility]) Lab Result Notes: Pre-Diabetes 5.7 - 6.4 % Diabetes = or > 6.5% Glucose mean value [Mass/volume] in Blood Estimated fr om glycated hemoglobin 163 mg/dL 60-110 [facility] ([facility] ) ID Date Data Source [id number] 04/11/2020 08:45:00 AM EST [facility]) Name Value Range Interpretation Code Description Data Janet rce(s) Supporting Document(s) Erythrocytes [#/volume] in Blood by Automated count 4.16 x10*6/UL 4.2 0-6.30 [facility] ([facility]) Leukocytes [#/volume] in Blood by Automated count 4.8 x10*3/UL 4.1-10 .9 [facility] ([facility]) Hemoglobin [Mass/volume] in Blood 12.4 g/dL 12.0-18.0 [facility] ([facility]) Hematocrit [Volume Fraction] of Blood by Automated count 35.6 % 3 7.0-51.0 [facility] ([facility]) MCH 29.7 pg 26.0-32.0 [facility] [facility]) MCV 85.5 fL 80.0-97.0 [facility] ([facility]) MCHC 34.8 g/dL 31.0-38.0 [facility] ([facility]) Platelets [#/volume] in Blood by Automated count 277 x10*3/UL 140-440 [facility] Erythrocyte distribution width [Ratio] by Automated count 12.2 % 11.6-13.7 [facility] ([facility]) Lymph % 35.3 % 10.0-58.5 [facility] ([place] [facility]) Mid % 7.1 % 1.7-9.3 [facility] ([facility]) MPV 8.4 FL 7.8-11.0 [facility] ([facility]) Lymph # 1.7 x10*3/UL 0.6-4.1 [facility] ([facility]) Neut % 57.6 % 37.0-92.0 [facility] [facility]) Mid # 0.4 x10*3/UL 0.1-0.6 [facility] ([facility]) Neut # 2.7 x10*3/UL 2.0-7.8 [facility] ([facility]) ID Date Data Source [id number] 04/11/2020 08:45:00 AM EST [facility] ([facility]) Name Value Range Interpretation Code Description Data Janet rce(s) Supporting Document(s) Hemoglobin A1c/Hemoglobin.total in Blood Laboratory test result [facility] ([facility]) Procedure Social History No Information Vital Signs ID Date Data Source [id number] Name Value Range Interpretation Code Description Data Source(s) Body height 63 [in_i] 63 [in_i] [facility] ([facility], ) 5'3" Body weight 189.00 [lb_av] 189.00 [lb_av] [facility] ([facility], ) Body mass index (BMI) [Ratio] 33.5 kg/m2 33.5 k g/m2 [facility] ([facility]) [place] body weight 115 [lb_av] 115 [lb_av] [facility] ([facility], ) Heart rate 76 /min 76 /min [facility] ([facility]) Body height 64 [in_i] 64 [in_i] [facility] ([facility]) 5'4" Body weight 190.00 [lb_av] 190.00 [lb_av] [facility] ([facility]) Oxygen saturation in Arterial blood by Pulse oximetry 98 % 98 % [facility] ([facility]) Body mass index (BMI) [Ratio] 32.6 kg/m2 32.6 k g/m2 [facility] Body mass index (BMI) [Ratio] 32.1 kg/m2 32.1 k g/m2 [facility] ([facility]) Systolic blood pressure 122 mm[Hg] 122 mm[Hg] [facility] Diastolic blood pressure 70 mm[Hg] 70 mm[Hg] [facility] ([facility]) Heart rate 78 /min 78 /min [facility] ([facility]) Body height 64 [in_i] 64 [in_i] [facility] ([facility]) 5'4" Body weight 187.00 [lb_av] 187.00 [lb_av] [facility] ([facility]) Oxygen saturation in Arterial blood by Pulse oximetry 97 % 97 % [facility] ([facility])
[2021-04-10] MEDS ORDERED: BOOSTRIX/ADACEL VACCINE (DIPHTH/PERTUSS/ACELL/TETANUS) 0.5ML SYR IM ONE (03:40)
== END 2021-04-10 04:28 | disposition short-term general hospital (02) ==
LOC: M ED 01:20
DX: T21.21XA Burn of second degree of chest wall, initial encounter (principal); T22.211A Burn of second degree of right forearm, initial encounter; T23.202A Burn of second degree of left hand, unspecified site, initial encounter; T24.211A Burn of second degree of right thigh, initial encounter; T31.0 Burns involving less than 10% of body surface; X10.2XXA Contact with fats and cooking oils, initial encounter; Y92.009 Unspecified place in unspecified non-institutional (private) residence as the place of occurrence of the external cause; Y93.9 Activity, unspecified; Y99.9 Unspecified external cause status; I10 Essential (primary) hypertension; E11.9 Type 2 diabetes mellitus without complications; Z79.82 Long term (current) use of aspirin; Z79.84 Long term (current) use of oral hypoglycemic drugs; Z79.899 Other long term (current) drug therapy; Z88.6 Allergy status to analgesic agent
CPT/HCPCS: 90471; 90715; 96361; 96374; 96375; 96376; 99284; J2270; J2405

== ENCOUNTER → 2021-08-28 | Outpatient (CLI) | payer MEDICARE, OTHER, MEDICAID ==
[~2021-08-28] MED LIST changes: -LEVO500T3 PO; +LEVO500T4 PO
== END ==
LOC: M WUC 08:03
PROVIDERS: ATTEND Nurse Practitioner Adult Health
DX: M85.88 Other specified disorders of bone density and structure, other site (principal); M51.34 Other intervertebral disc degeneration, thoracic region

== ENCOUNTER → 2021-09-11 | Outpatient (CLI) | payer MEDICARE, OTHER | LOC: M WHC 07:54 | PROVIDERS: ATTEND Nurse Practitioner Adult Health | DX: M81.0 Age-related osteoporosis without current pathological fracture (principal) ==

== ENCOUNTER 2021-10-03 06:18 | Emergency (ER) | payer MEDICARE, OTHER ==
[~2021-10-03] VITALS: Ht 160 cm; Wt 84.5 kg
[2021-10-03 06:19] VITALS: BP 138/75
[2021-10-03 08:16] LABS: BASO # 0.1 10^3/uL (0.0-0.2); BASO % 0.8 % (0.0-1.0); EOS # 0.2 10^3/uL (0.0-0.5); EOS % 3.1 % (0.0-3.0); HEMOGLOBIN 10.8 g/dl (12.0-15.5); LYMPH # 2.7 10^3/uL (1.5-5.0); MEAN CORPUSCULAR HEMOGLOBIN 29.6 pg (27.0-33.0); MEAN CORPUSCULAR HGB CONC 32.7 g/dl (32.0-36.5); MEAN CORPUSCULAR VOLUME 90.4 fl (80.0-96.0); MONO # 0.5 10^3/uL (0.0-0.8); MONO % 7.9 % (2.0-8.0); NEUTROPHILS # 2.9 10^3/uL (1.5-8.5); NEUTROPHILS % 45.6 % (36.0-66.0); PLATELET COUNT, AUTOMATED 267 10^3/uL (150-450); RED BLOOD COUNT 3.65 10^6/uL (4.00-5.40); WHITE BLOOD COUNT 6.5 10^3/uL (4.0-10.0)
[2021-10-03 08:40] LABS: BLOOD UREA NITROGEN 13 MG/DL (7-18); C REACTIVE PROTEIN QUANTITATIV 0.72 MG/DL (0.00-0.30); CALCIUM LEVEL 9.4 MG/DL (8.8-10.2); CARBON DIOXIDE LEVEL 30 MEQ/L (21-32); CHLORIDE LEVEL 107 MEQ/L (98-107); CREATININE FOR GFR 0.65 MG/DL (0.55-1.30); GLOMERULAR FILTRATION RATE > 60.0 (>45); GLUCOSE, FASTING 145 MG/DL (70-100); POTASSIUM SERUM 4.4 MEQ/L (3.5-5.1); SODIUM LEVEL 141 MEQ/L (136-145)
[2021-10-03 08:53] LABS: ERYTHROCYTE SEDIMENTATION RATE 35 mm/hr (0-30)
== END 2021-10-03 09:38 | disposition left against medical advice (07) ==
LOC: M ED 06:18
DX: R22.41 Localized swelling, mass and lump, right lower limb (principal); E11.9 Type 2 diabetes mellitus without complications; Z88.8 Allergy status to other drugs, medicaments and biological substances; Z53.21 Procedure and treatment not carried out due to patient leaving prior to being seen by health care provider

== ENCOUNTER 2021-10-09 03:45 | Emergency (ER) | payer MEDICARE ==
[~2021-10-09] VITALS: Ht 160 cm; Wt 87.3 kg
[2021-10-09 03:48] VITALS: BP 112/72
== END 2021-10-09 04:20 | disposition left against medical advice (07) ==
LOC: M ED 03:45
DX: Z53.21 Procedure and treatment not carried out due to patient leaving prior to being seen by health care provider (principal)

== ENCOUNTER → 2021-10-14 | Outpatient (REF) | payer MEDICARE ==
[2021-10-14 13:22] LABS: HEMATOCRIT 40.2 % (36.0-47.0)
[2021-10-14 13:53] LABS: PERCENT SATURATION 20.7 % (13.2-45.0)
== END ==
LOC: M LAB REF 12:22
PROVIDERS: ATTEND Nurse Practitioner Adult Health
DX: D64.9 Anemia, unspecified (principal); M10.9 Gout, unspecified

== ENCOUNTER → 2021-10-23 | Outpatient (CLI) | payer MEDICARE | LOC: M SOG 08:37 | PROVIDERS: ATTEND Orthopaedic Surgery | DX: M25.571 Pain in right ankle and joints of right foot (principal) ==

== ENCOUNTER → 2021-11-06 | Outpatient (REF) | payer MEDICARE, MEDICAID ==
[2021-11-06 13:19] LABS: BASO # 0.1 10^3/uL (0.0-0.2); BASO % 0.8 % (0.0-1.0); EOS # 0.2 10^3/uL (0.0-0.5); EOS % 2.1 % (0.0-3.0); HEMATOCRIT 37.7 % (36.0-47.0); HEMOGLOBIN 12.2 g/dl (12.0-15.5); LYMPH # 2.8 10^3/uL (1.5-5.0); LYMPH % 39.5 % (24.0-44.0); MEAN CORPUSCULAR HEMOGLOBIN 29.3 pg (27.0-33.0); MEAN CORPUSCULAR HGB CONC 32.4 g/dl (32.0-36.5); MEAN CORPUSCULAR VOLUME 90.6 fl (80.0-96.0); MONO # 0.5 10^3/uL (0.0-0.8); MONO % 6.7 % (2.0-8.0); NEUTROPHILS # 3.6 10^3/uL (1.5-8.5); NEUTROPHILS % 50.8 % (36.0-66.0); PLATELET COUNT, AUTOMATED 312 10^3/uL (150-450); RED BLOOD COUNT 4.16 10^6/uL (4.00-5.40); WHITE BLOOD COUNT 7.1 10^3/uL (4.0-10.0)
[2021-11-06 13:35] LABS: ALT/SGPT 148 U/L (12-78); BILIRUBIN,TOTAL 0.4 MG/DL (0.2-1.0); BLOOD UREA NITROGEN 18 MG/DL (7-18); CALCIUM LEVEL 9.4 MG/DL (8.8-10.2); CARBON DIOXIDE LEVEL 29 MEQ/L (21-32); CHLORIDE LEVEL 103 MEQ/L (98-107); CHOLESTEROL LEVEL 206 MG/DL (<200); CHOLESTEROL RISK RATIO 4.577 (<5); CREATININE FOR GFR 0.86 MG/DL (0.55-1.30); FOLATE 11.8 NG/ML; FREE T4 0.92 NG/DL (0.76-1.46); GLOMERULAR FILTRATION RATE > 60.0 (>45); GLUCOSE, FASTING 139 MG/DL (70-100); HDL CHOLESTEROL 45 MG/DL (>40); LDL CHOLESTEROL 134 MG/DL (<100); NON-HDL-C 161 MG/DL; POTASSIUM SERUM 4.7 MEQ/L (3.5-5.1); RHEUMATOID FACTOR QUANT < 10.0 IU/ML (<15.0); SODIUM LEVEL 135 MEQ/L (136-145); TOTAL PROTEIN 7.7 GM/DL (6.4-8.2); TRIGLYCERIDES LEVEL 135 MG/DL (<150); VITAMIN B12 LEVEL 280 PG/ML
[2021-11-06 14:09] LABS: HEMOGLOBIN A1c 7.1 %
[2021-11-07 23:07] LABS: ANA (HEP2) Negative (.)
== END ==
LOC: M SFHCADAM 08:09
PROVIDERS: ATTEND Physician Assistant
DX: R41.3 Other amnesia (principal); E11.9 Type 2 diabetes mellitus without complications; G62.9 Polyneuropathy, unspecified; M25.471 Effusion, right ankle; Z13.220 Encounter for screening for lipoid disorders

== ENCOUNTER → 2021-11-25 | Outpatient (CLI) | payer MEDICARE, MEDICAID ==
[~2021-11-25] MED LIST changes: +PROHANCE 279.3MG/ML 15ML VIAL As Ordered ONE; +PROHANCE 279.3MG/ML 5ML VIAL As Ordered ONE
== END ==
LOC: M RAD 13:46
PROVIDERS: ATTEND Orthopaedic Surgery
DX: M25.571 Pain in right ankle and joints of right foot (principal)

== ENCOUNTER → 2021-11-25 | Outpatient (CLI) | payer MEDICARE ==
[~2021-11-25] MED LIST changes: -PROHANCE 279.3MG/ML 15ML VIAL As Ordered ONE; -PROHANCE 279.3MG/ML 5ML VIAL As Ordered ONE
== END ==
LOC: M RAD 12:48
PROVIDERS: ATTEND Physician Assistant
DX: G93.0 Cerebral cysts (principal); R41.3 Other amnesia; Z87.820 Personal history of traumatic brain injury; Z86.69 Personal history of other diseases of the nervous system and sense organs; M25.571 Pain in right ankle and joints of right foot
CPT/HCPCS: 70553; 73721; A9576

== ENCOUNTER → 2021-12-13 | Outpatient (CLI) | payer MEDICARE ==
[~2021-12-13] MED LIST changes: +ISOVUE-370 76% 100ML VIAL As Ordered ONE
== END ==
LOC: M RAD 16:06
PROVIDERS: ATTEND Orthopaedic Surgery
DX: M25.571 Pain in right ankle and joints of right foot (principal)
CPT/HCPCS: 73700; 73701; Q9967

== ENCOUNTER → 2022-01-02 | Outpatient (REF) | payer MEDICARE, MEDICAID ==
[~2022-01-02] MED LIST changes: -ISOVUE-370 76% 100ML VIAL As Ordered ONE; +LEVO1TAB39 PO; -LEVO500T4 PO
== END ==
LOC: M SFHCADAM 16:16
PROVIDERS: ATTEND Family Medicine
DX: R35.0 Frequency of micturition (principal)

== ENCOUNTER → 2022-02-13 | Outpatient (REF) | payer MEDICARE, MEDICAID ==
[2022-02-13 14:07] LABS: ALBUMIN 3.6 GM/DL (3.2-5.2); ALT/SGPT 31 U/L (12-78); BILIRUBIN,TOTAL 0.3 MG/DL (0.2-1.0); BLOOD UREA NITROGEN 12 MG/DL (7-18); CALCIUM LEVEL 8.9 MG/DL (8.8-10.2); CARBON DIOXIDE LEVEL 30 MEQ/L (21-32); CHLORIDE LEVEL 104 MEQ/L (98-107); CHOLESTEROL LEVEL 115 MG/DL (<200); CHOLESTEROL RISK RATIO 2.613 (<5); CREATININE FOR GFR 0.76 MG/DL (0.55-1.30); GLOMERULAR FILTRATION RATE > 60.0 (>45); GLUCOSE, FASTING 174 MG/DL (70-100); HDL CHOLESTEROL 44 MG/DL (>40); LDL CHOLESTEROL 48 MG/DL (<100); NON-HDL-C 71 MG/DL; SODIUM LEVEL 138 MEQ/L (136-145); TOTAL PROTEIN 6.9 GM/DL (6.4-8.2); TRIGLYCERIDES LEVEL 114 MG/DL (<150)
[2022-02-15 08:09] LABS: VITAMIN B12 LEVEL 405 pg/mL (232-1245)
== END ==
LOC: M SFHCADAM 09:13
PROVIDERS: ATTEND Physician Assistant
DX: E78.00 Pure hypercholesterolemia, unspecified (principal); E11.9 Type 2 diabetes mellitus without complications; R74.8 Abnormal levels of other serum enzymes; E53.8 Deficiency of other specified B group vitamins; K76.0 Fatty (change of) liver, not elsewhere classified

== ENCOUNTER → 2022-07-18 | Outpatient (CLI) | payer MEDICARE, MEDICAID | LOC: M ADAMS 12:08 | PROVIDERS: ATTEND Physician Assistant | DX: E78.00 Pure hypercholesterolemia, unspecified (principal) ==

== ENCOUNTER → 2022-07-18 | Outpatient (REF) | payer MEDICARE, MEDICAID ==
[2022-07-18 15:26] LABS: BASO # 0.1 10^3/uL (0.0-0.2); BASO % 1.2 % (0.0-1.0); EOS # 0.2 10^3/uL (0.0-0.5); EOS % 3.7 % (0.0-3.0); HEMATOCRIT 39.7 % (36.0-47.0); HEMOGLOBIN 12.7 g/dl (12.0-15.5); LYMPH # 2.3 10^3/uL (1.5-5.0); MEAN CORPUSCULAR HEMOGLOBIN 29.5 pg (27.0-33.0); MEAN CORPUSCULAR VOLUME 92.3 fl (80.0-96.0); MONO # 0.5 10^3/uL (0.0-0.8); MONO % 9.7 % (2.0-8.0); PLATELET COUNT, AUTOMATED 224 10^3/uL (150-450); WHITE BLOOD COUNT 5.1 10^3/uL (4.0-10.0)
[2022-07-18 15:43] LABS: CPK CREATINE PHOSPHOKINASE 85 U/L (34-145)
[2022-07-18 15:51] LABS: ALBUMIN 3.5 G/DL (3.2-5.2); ALKALINE PHOSPHATASE 85 U/L (46-116); ALT/SGPT 29 U/L (7.0-40); AST/SGOT 25 U/L (<34); BILIRUBIN,TOTAL 0.6 MG/DL (0.3-1.2); BLOOD UREA NITROGEN 11 MG/DL (9-23); CALCIUM LEVEL 8.8 MG/DL (8.3-10.6); CARBON DIOXIDE LEVEL 32 MMOL/L (20-31); CHLORIDE LEVEL 100 MMOL/L (98-107); CREATININE FOR GFR 0.72 MG/DL (0.55-1.30); GLOMERULAR FILTRATION RATE > 60.0 (>45); GLUCOSE, FASTING 212 MG/DL (74-106); POTASSIUM SERUM 4.7 MMOL/L (3.5-5.1); SODIUM LEVEL 139 MMOL/L (136-145); TOTAL PROTEIN 6.8 G/DL (5.7-8.2)
[2022-07-18 16:11] LABS: ERYTHROCYTE SEDIMENTATION RATE 24 mm/hr (0-30)
== END ==
LOC: M SFHCADAM 11:52
PROVIDERS: ATTEND Physician Assistant
DX: K76.0 Fatty (change of) liver, not elsewhere classified (principal); E11.9 Type 2 diabetes mellitus without complications; M54.6 Pain in thoracic spine

== ENCOUNTER → 2022-08-15 | Outpatient (CLI) | payer MEDICARE, MEDICAID ==
[~2022-08-15] MED LIST changes: +ASPI81TA26 PO; +ATOR40TA75 PO; +CYCL-707 PO; +DULO60CA35 PO; +GABA600T4 PO; +JARD1TAB3 PO; +LIDO1PAD TOP; +OXYC1TAB23; +TRAZ-189 PO
== END ==
LOC: M SOG 08:09
PROVIDERS: ATTEND Orthopaedic Surgery
DX: M17.12 Unilateral primary osteoarthritis, left knee (principal); M25.462 Effusion, left knee

== ENCOUNTER 2022-08-17 10:41 | Inpatient (IN) | payer MEDICARE, MEDICAID ==
[~2022-08-17] VITALS: Ht 154.9 cm; Wt 85.1 kg
[~2022-08-17 10:41] MED LIST changes: -ASPI81TA26 PO; -ATOR40TA75 PO; -CYCL-707 PO; -DULO60CA35 PO; -GABA600T4 PO; -JARD1TAB3 PO; -LIDO1PAD TOP; -OXYC1TAB23; -TRAZ-189 PO
[2022-08-17] MEDS ORDERED: NS 1,000 ML IV ONE ×2 (10:50→12:35)
[2022-08-17 11:12] LABS: BASO # 0.1 10^3/uL (0.0-0.2); EOS % 0.5 % (0.0-3.0); HEMATOCRIT 41.5 % (36.0-47.0); HEMOGLOBIN 13.1 g/dl (12.0-15.5); LYMPH # 1.4 10^3/uL (1.5-5.0); LYMPH % 16.4 % (24.0-44.0); MEAN CORPUSCULAR HEMOGLOBIN 29.6 pg (27.0-33.0); MEAN CORPUSCULAR HGB CONC 31.6 g/dl (32.0-36.5); MEAN CORPUSCULAR VOLUME 93.7 fl (80.0-96.0); MONO # 0.6 10^3/uL (0.0-0.8); MONO % 6.6 % (2.0-8.0); NEUTROPHILS # 6.2 10^3/uL (1.5-8.5); NEUTROPHILS % 75.3 % (36.0-66.0); PLATELET COUNT, AUTOMATED 272 10^3/uL (150-450); RED BLOOD COUNT 4.43 10^6/uL (4.00-5.40); WHITE BLOOD COUNT 8.3 10^3/uL (4.0-10.0)
[2022-08-17 11:25] LABS: HEMOGLOBIN A1c 9.4 % (4.0-6.0)
[2022-08-17 11:37] LABS: OSMOLALITY SERUM 305 MOSM/KG (280-301)
[2022-08-17 11:42] LABS: ALBUMIN 3.9 G/DL (3.2-5.2); ALKALINE PHOSPHATASE 94 U/L (46-116); ALT/SGPT 32 U/L (7.0-40); AST/SGOT 34 U/L (<34); BILIRUBIN,DIRECT < 0.1 MG/DL (<0.4); BILIRUBIN,TOTAL 0.3 MG/DL (0.3-1.2); BLOOD UREA NITROGEN 19 MG/DL (9-23); CARBON DIOXIDE LEVEL 26 MMOL/L (20-31); CHLORIDE LEVEL 104 MMOL/L (98-107); CREATININE FOR GFR 0.83 MG/DL (0.55-1.30); GLOMERULAR FILTRATION RATE > 60.0 (>45); GLUCOSE, FASTING 293 MG/DL (74-106); POTASSIUM SERUM 5.6 MMOL/L (3.5-5.1); SODIUM LEVEL 136 MMOL/L (136-145); TOTAL PROTEIN 7.3 G/DL (5.7-8.2)
[2022-08-17 11:45] LABS: THYROID STIMULATING HORMONE 0.525 uIU/ML (0.55-4.78)
[2022-08-17] MEDS ORDERED: ATOR40TA75 PO (11:53)
[2022-08-17] MEDS ORDERED: OXYC1TAB23 (11:53)
[2022-08-17] MEDS ORDERED: JARD1TAB3 PO (11:53)
[2022-08-17] MEDS ORDERED: CYCL-707 PO (11:53)
[2022-08-17 12:16] LABS: AMPHETAMINES LEVEL URINE NEGATIVE (NEGATIVE); BARBITURATES URINE NEGATIVE (NEGATIVE); BENZODIAZEPINES URINE NEGATIVE (NEGATIVE); COCAINE METABOLITE URINE NEGATIVE (NEGATIVE); METHADONE URINE NEGATIVE (NEGATIVE); OPIATES URINE NEGATIVE (NEGATIVE); PHENCYCLIDINE URINE NEGATIVE (NEGATIVE)
[2022-08-17 12:21] LABS: CANNABINOIDS URINE POSITIVE (NEGATIVE)
[2022-08-17 13:41] LABS: ETHYL ALCOHOL (ETHANOL) < 0.003 % (0.000-0.010)
[2022-08-17] MEDS ORDERED: TRAZ-189 PO (14:20)
[2022-08-17] MEDS ORDERED: DULO60CA35 PO (14:20)
[2022-08-17] MEDS ORDERED: ATEN25TA PO (14:20)
[2022-08-17] MEDS ORDERED: LIDO1PAD TOP (14:21)
[2022-08-17] MEDS ORDERED: GABA600T4 PO (14:21)
[2022-08-17] MEDS ORDERED: ASPI81TA26 PO (14:21)
[2022-08-17] MEDS ORDERED: HOME MED LIST COMPLETE! XX SCH (14:25)
[2022-08-17 14:40] LABS: RSV AMPLIFICATION NEGATIVE (NEGATIVE)
[2022-08-17] MEDS ORDERED: GLUCOSE 4GM CHEW TABLET PO PRN (14:45)
[2022-08-17] MEDS ORDERED: GLUCAGON INJ 1MG VIAL SC PRN (14:45)
[2022-08-17] MEDS ORDERED: DEXTROSE 50% 50ML SYRINGE IV PRN (14:45)
[2022-08-17] MEDS: NS 1,000 ML IV SCH ×2 (15:14→22:49)
[2022-08-17 15:45] VITALS: BP 105/63
[2022-08-17 16:49] LABS: VENOUS BASE EXCESS -4.7 (-2.0-2.0); VENOUS HCO3 22.8 MEQ/L (23.0-27.0); VENOUS O2 SATURATION 88.4 % (60.0-80.0); VENOUS PARTIAL PRESSURE CO2 52.4 mmHg (38.0-50.0); VENOUS PARTIAL PRESSURE O2 58.4 mmHg (30.0-50.0); VENOUS PH 7.256 UNITS (7.330-7.430); VENOUS STANDARD HCO3 20.4 MEQ/L; VENOUS TOTAL CO2 24.4 MEQ/L (24.0-28.0)
[2022-08-17] MEDS: INSULIN LISPRO (NovoLOG) PER UNIT SC SCH (17:11)
[2022-08-17] MEDS ORDERED: ASPIRIN 81MG ENTERIC TABLET PO SCH (21:00)
[2022-08-17] MEDS ORDERED: INSULIN LISPRO (NovoLOG) PER UNIT SC SCH (21:00)
[2022-08-17] MEDS ORDERED: ENOXAPARIN 40MG/0.4ML SYRINGE (J1650 PER 10MG) SC SCH (21:00)
[2022-08-17 21:18] VITALS: BP 103/52
[2022-08-17] MEDS: DULoxetine 30MG CAPSULE (CYMBALTA) PO SCH (21:48)
[2022-08-17] MEDS: atenoloL 25 MG TAB PO SCH (21:50)
[2022-08-18 01:55] VITALS: BP 112/73
[2022-08-18 05:42] VITALS: BP 116/73
[2022-08-18 06:31] LABS: HEMATOCRIT 33.2 % (36.0-47.0); MEAN CORPUSCULAR HEMOGLOBIN 29.8 pg (27.0-33.0); MEAN CORPUSCULAR HGB CONC 31.9 g/dl (32.0-36.5); MEAN CORPUSCULAR VOLUME 93.3 fl (80.0-96.0); PLATELET COUNT, AUTOMATED 204 10^3/uL (150-450); RED BLOOD COUNT 3.56 10^6/uL (4.00-5.40); WHITE BLOOD COUNT 5.1 10^3/uL (4.0-10.0)
[2022-08-18 06:39] LABS: HEMOGLOBIN 10.6 g/dl (12.0-15.5)
[2022-08-18 07:04] LABS: BLOOD UREA NITROGEN 13 MG/DL (9-23); CALCIUM LEVEL 7.7 MG/DL (8.3-10.6); CARBON DIOXIDE LEVEL 27 MMOL/L (20-31); CHLORIDE LEVEL 108 MMOL/L (98-107); CREATININE FOR GFR 0.59 MG/DL (0.55-1.30); GLOMERULAR FILTRATION RATE > 60.0 (>45); GLUCOSE, FASTING 171 MG/DL (74-106); POTASSIUM SERUM 4.1 MMOL/L (3.5-5.1); SODIUM LEVEL 139 MMOL/L (136-145)
[2022-08-18 07:15] LABS: OSMOLALITY SERUM 300 MOSM/KG (280-301)
[2022-08-18] MEDS ORDERED: ATORVASTATIN 20 MG TAB PO SCH (09:00)
[2022-08-18] MEDS: NS 1,000 ML IV SCH (09:44)
[2022-08-18] MEDS: DULoxetine 30MG CAPSULE (CYMBALTA) PO SCH (09:45)
[2022-08-18 09:48] VITALS: BP 117/73
[2022-08-18] MEDS: atenoloL 25 MG TAB PO SCH (09:48)
[2022-08-18] MEDS: INSULIN LISPRO (NovoLOG) PER UNIT SC SCH (09:58)
== END 2022-08-18 11:20 | disposition home or self-care (01) | DRG 896 ==
LOC: EDBD 10:41 → M ED 10:41 → M ED INP 14:41 → ENRESERV 15:08 → M MS5PR 15:40
PROVIDERS: ADMIT Family Medicine; ATTEND Family Medicine
DX: F12.929 Cannabis use, unspecified with intoxication, unspecified (principal); E11.00 Type 2 diabetes mellitus with hyperosmolarity without nonketotic hyperglycemic-hyperosmolar coma (NKHHC); E11.40 Type 2 diabetes mellitus with diabetic neuropathy, unspecified; Z91.14 Patient's other noncompliance with medication regimen; Z91.119 Patient's noncompliance with dietary regimen due to unspecified reason; Z79.899 Other long term (current) drug therapy; Z79.82 Long term (current) use of aspirin; F32.A Depression, unspecified; G47.00 Insomnia, unspecified; M54.59 Other low back pain; K76.0 Fatty (change of) liver, not elsewhere classified; E78.5 Hyperlipidemia, unspecified

== ENCOUNTER → 2022-08-27 | Outpatient (CLI) | payer MEDICARE, MEDICAID ==
[~2022-08-27] MED LIST changes: +ASPI81TA26 PO; +ATOR40TA75 PO; +CYCL-707 PO; +DULO60CA35 PO; +GABA600T4 PO; +JARD1TAB3 PO; +LIDO1PAD TOP; +OXYC1TAB23; +TRAZ-189 PO
== END ==
LOC: M RAD 07:04
PROVIDERS: ATTEND Orthopaedic Surgery
DX: S83.272A Complex tear of lateral meniscus, current injury, left knee, initial encounter (principal); X58.XXXA Exposure to other specified factors, initial encounter; Y92.9 Unspecified place or not applicable; M25.562 Pain in left knee

== ENCOUNTER → 2022-12-02 | Outpatient (REF) | payer MEDICARE, MEDICAID ==
[2022-12-02 13:40] LABS: ALBUMIN 4.1 G/DL (3.2-5.2); ALKALINE PHOSPHATASE 75 U/L (46-116); ALT/SGPT 33 U/L (7.0-40); AST/SGOT 20 U/L (<34); BILIRUBIN,TOTAL 0.4 MG/DL (0.3-1.2); BLOOD UREA NITROGEN 8 MG/DL (9-23); CALCIUM LEVEL 10.3 MG/DL (8.3-10.6); CARBON DIOXIDE LEVEL 28 MMOL/L (20-31); CHLORIDE LEVEL 104 MMOL/L (98-107); CREATININE FOR GFR 0.66 MG/DL (0.55-1.30); GLOMERULAR FILTRATION RATE > 60.0 (>45); GLUCOSE, FASTING 171 MG/DL (74-106); MAGNESIUM LEVEL 2.1 MG/DL (1.8-2.4); POTASSIUM SERUM 3.8 MMOL/L (3.5-5.1); SODIUM LEVEL 137 MMOL/L (136-145); TOTAL PROTEIN 7.1 G/DL (5.7-8.2)
[2022-12-02 13:42] LABS: FOLATE 14.2 NG/ML (>5.4); VITAMIN B12 LEVEL 839 PG/ML (211-911)
== END ==
LOC: M SFHCADAM 09:58
PROVIDERS: ATTEND Physician Assistant
DX: R41.3 Other amnesia (principal); M54.6 Pain in thoracic spine; E53.8 Deficiency of other specified B group vitamins; E11.9 Type 2 diabetes mellitus without complications

== ENCOUNTER → 2023-01-15 | Outpatient (CLI) | payer MEDICARE, MEDICAID | LOC: M SOG 08:57 | PROVIDERS: ATTEND Orthopaedic Surgery | DX: S83.282A Other tear of lateral meniscus, current injury, left knee, initial encounter (principal); M17.12 Unilateral primary osteoarthritis, left knee; Y93.9 Activity, unspecified; Y92.9 Unspecified place or not applicable ==

== ENCOUNTER → 2023-02-12 | Outpatient (REF) | payer MEDICARE, MEDICAID ==
[2023-02-12 17:58] LABS: BLOOD UREA NITROGEN 12 MG/DL (9-23); CALCIUM LEVEL 8.7 MG/DL (8.3-10.6); CARBON DIOXIDE LEVEL 29 MMOL/L (20-31); CHLORIDE LEVEL 105 MMOL/L (98-107); CREATININE FOR GFR 0.67 MG/DL (0.55-1.30); GLOMERULAR FILTRATION RATE > 60.0 (>45); GLUCOSE, FASTING 152 MG/DL (74-106); POTASSIUM SERUM 4.1 MMOL/L (3.5-5.1); SODIUM LEVEL 140 MMOL/L (136-145)
== END ==
LOC: M WUC 16:00
PROVIDERS: ATTEND Physician Assistant
DX: E11.9 Type 2 diabetes mellitus without complications (principal)

== ENCOUNTER → 2023-02-13 | Outpatient (CLI) | payer MEDICARE, MEDICAID ==
[~2023-02-13] MED LIST changes: +PROHANCE 279.3MG/ML 15ML VIAL ONE
== END ==
LOC: M PLARAD 07:37 → M PLAIMG 07:37
PROVIDERS: ATTEND Physician Assistant
DX: M54.6 Pain in thoracic spine (principal)
CPT/HCPCS: 72157; A9576

== ENCOUNTER → 2023-02-27 | Outpatient (CLI) | payer MEDICARE, MEDICAID ==
[~2023-02-27] MED LIST changes: -PROHANCE 279.3MG/ML 15ML VIAL ONE
== END ==
LOC: M RAD 13:00
PROVIDERS: ATTEND Orthopaedic Surgery
DX: M17.12 Unilateral primary osteoarthritis, left knee (principal)

== ENCOUNTER → 2023-03-10 | Outpatient (REF) | payer MEDICARE, MEDICAID ==
[~2023-03-10] MED LIST changes: +TRAZ-257 PO
[2023-03-10 16:45] LABS: BASO # 0.1 10^3/uL (0.0-0.2); BASO % 1.1 % (0.0-1.0); EOS # 0.2 10^3/uL (0.0-0.5); EOS % 2.3 % (0.0-3.0); HEMATOCRIT 43.1 % (36.0-47.0); LYMPH # 2.9 10^3/uL (1.5-5.0); LYMPH % 41.2 % (24.0-44.0); MEAN CORPUSCULAR HEMOGLOBIN 30.6 pg (27.0-33.0); MEAN CORPUSCULAR HGB CONC 32.5 g/dl (32.0-36.5); MEAN CORPUSCULAR VOLUME 94.1 fl (80.0-96.0); MONO # 0.6 10^3/uL (0.0-0.8); MONO % 8.7 % (2.0-8.0); NEUTROPHILS # 3.2 10^3/uL (1.5-8.5); NEUTROPHILS % 46.3 % (36.0-66.0); PLATELET COUNT, AUTOMATED 308 10^3/uL (150-450); RED BLOOD COUNT 4.58 10^6/uL (4.00-5.40)
[2023-03-10 16:52] LABS: HEMOGLOBIN A1c 6.9 % (4.0-6.0)
[2023-03-10 16:55] LABS: INR 0.96; PROTHROMBIN TIME 12.5 SECONDS (12.5-14.5)
[2023-03-10 17:12] LABS: C REACTIVE PROTEIN QUANTITATIV < 0.40 MG/DL (<1.0)
[2023-03-10 17:13] LABS: ALKALINE PHOSPHATASE 70 U/L (46-116); ALT/SGPT 34 U/L (7.0-40); AST/SGOT 26 U/L (<34); BILIRUBIN,TOTAL 0.4 MG/DL (0.3-1.2); BLOOD UREA NITROGEN 18 MG/DL (9-23); CALCIUM LEVEL 9.3 MG/DL (8.3-10.6); CARBON DIOXIDE LEVEL 29 MMOL/L (20-31); CHLORIDE LEVEL 102 MMOL/L (98-107); CREATININE FOR GFR 0.68 MG/DL (0.55-1.30); GLOMERULAR FILTRATION RATE > 60.0 (>45); GLUCOSE, FASTING 136 MG/DL (74-106); POTASSIUM SERUM 4.7 MMOL/L (3.5-5.1); SODIUM LEVEL 138 MMOL/L (136-145); TOTAL PROTEIN 7.6 G/DL (5.7-8.2)
== END ==
LOC: M SFHCADAM 11:18
PROVIDERS: ATTEND Physician Assistant
DX: Z01.818 Encounter for other preprocedural examination (principal); E11.9 Type 2 diabetes mellitus without complications

== ENCOUNTER 2023-03-17 08:14 | Observation (INO) | payer MEDICARE, MEDICAID ==
[2023-03-17] VITALS (8 sets, daily range): BP systolic 91–130; BP diastolic 49–67; TEMP 96.8–97.5; O2SAT 91–94
[~2023-03-17] VITALS: Ht 157.5 cm; Wt 76.9 kg
[~2023-03-17 08:14] MED LIST changes: +LIDOCAINE 2% 100MG/5ML SDV (FOR ANES.) As Ordered ONE; +ONDANSETRON 4MG 2ML VIAL As Ordered ONE; +ROCURONIUM BROMIDE 50MG/5ML VIAL As Ordered ONE; +ROPIVA 100MG/KETOR 15MG/EPINEPHRINE 0.3MG IN NS 50ML SYRINGE PA ONE; +SUGAMMADEX SODIUM 500 MG/5 ML VIAL (BRIDION) As Ordered ONE; +TRANEXAMIC ACID INJection 1,000 MG in NS 100 ML IV ONE; +ceFAZolin SOD 2 GM in IV 1 EA IV ONE; +propofoL 200 MG/20 ML VIAL As Ordered ONE
[2023-03-17] MEDS ORDERED: LR 1,000 ML IV SCH ×3 (08:30→12:10)
[2023-03-17] MEDS ORDERED: INSULIN LISPRO (NovoLOG) PER UNIT SC PRN ×2 (08:30→11:50)
[2023-03-17] MEDS ORDERED: fentaNYL 250 MCG/5 ML INJECTION As Ordered ONE (08:39)
[2023-03-17] MEDS ORDERED: MIDAZOLAM INJ 2MG/2ML VIAL As Ordered ONE (08:39)
[2023-03-17] MEDS ORDERED: [UNRECOGNIZED DRUG - REMARK] PO (08:43)
[2023-03-17] MEDS ORDERED: TRANEXAMIC ACID 100 MG/ML 10ML VIAL As Ordered ONE (08:46)
[2023-03-17] MEDS ORDERED: HOME MED LIST COMPLETE! XX SCH (09:15)
[2023-03-17] MEDS ORDERED: ACETAMINOPHEN 1000MG 100ML IV BAG As Ordered ONE (09:29)
[2023-03-17] MEDS ORDERED: HYDROmorphone HCL 2MG/ML 1ML VIAL As Ordered ONE (10:37)
[2023-03-17] MEDS ORDERED: ONDANSETRON 4MG 2ML VIAL IV PRN ×2 (11:50→12:10)
[2023-03-17] MEDS ORDERED: oxyCODONE 5MG TAB PO PRN (12:10)
[2023-03-17] MEDS ORDERED: SENNA 8.6 MG TAB (SENOKOT) PO PRN (12:10)
[2023-03-17] MEDS ORDERED: GLUCAGON INJ 1MG VIAL SC PRN (12:15)
[2023-03-17] MEDS ORDERED: DEXTROSE 50% 50ML SYRINGE IV PRN (12:15)
[2023-03-17] MEDS ORDERED: GLUCOSE 4GM CHEW TABLET PO PRN (12:15)
[2023-03-17] MEDS: oxyCODONE 5MG TAB PO PRN ×4 (12:30→23:55)
[2023-03-17] MEDS: fentaNYL 100 MCG/2 ML INJECTION IV PRN ×4 (12:31→13:12)
[2023-03-17] MEDS: INSULIN LISPRO (NovoLOG) PER UNIT SC SCH (16:58)
[2023-03-17] MEDS: ceFAZolin SOD 2 GM in IV 1 EA IV SCH (17:58)
[2023-03-17] MEDS: ACETAMINOPHEN TAB 650MG DOSE (2X325MG) PO SCH ×2 (17:59→23:54)
[2023-03-17] MEDS: ASPIRIN 81MG ENTERIC TABLET PO SCH (20:20)
[2023-03-17] MEDS: GABAPENTIN 300 MG CAP PO SCH (20:20)
[2023-03-17] MEDS: DOCUSATE SODIUM 100MG CAPSULE PO SCH (20:22)
[2023-03-17] MEDS: atenoloL 25 MG TAB PO SCH (20:22)
[2023-03-17] MEDS ORDERED: traZODone 100 MG TAB PO SCH (21:00)
[2023-03-17] MEDS ORDERED: INSULIN LISPRO (NovoLOG) PER UNIT SC SCH (21:00)
[2023-03-18 02:00] VITALS: BP 118/62; TEMP 97.3; O2SAT 94
[2023-03-18] MEDS: ceFAZolin SOD 2 GM in IV 1 EA IV SCH (02:07)
[2023-03-18] MEDS: ACETAMINOPHEN TAB 650MG DOSE (2X325MG) PO SCH (05:27)
[2023-03-18 06:00] VITALS: BP 90/47; TEMP 97.2; O2SAT 93
[2023-03-18] MEDS: INSULIN LISPRO (NovoLOG) PER UNIT SC SCH (07:30)
[2023-03-18 07:41] LABS: HEMATOCRIT 29.6 % (36.0-47.0); HEMOGLOBIN 9.9 g/dl (12.0-15.5); MEAN CORPUSCULAR HEMOGLOBIN 31.2 pg (27.0-33.0); MEAN CORPUSCULAR HGB CONC 33.4 g/dl (32.0-36.5); MEAN CORPUSCULAR VOLUME 93.4 fl (80.0-96.0); PLATELET COUNT, AUTOMATED 266 10^3/uL (150-450); RED BLOOD COUNT 3.17 10^6/uL (4.00-5.40); WHITE BLOOD COUNT 8.2 10^3/uL (4.0-10.0)
[2023-03-18 07:51] LABS: INR 1.01
[2023-03-18 08:09] LABS: TOTAL 25(OH) VITAMIN D 32.2 NG/ML (20.0-100.0)
[2023-03-18] MEDS: ASPIRIN 81MG ENTERIC TABLET PO SCH (08:19)
[2023-03-18] MEDS: GABAPENTIN 300 MG CAP PO SCH (08:19)
[2023-03-18] MEDS: DOCUSATE SODIUM 100MG CAPSULE PO SCH (08:19)
[2023-03-18 08:22] VITALS: BP 113/57
[2023-03-18] MEDS: atenoloL 25 MG TAB PO SCH (08:22)
[2023-03-18 08:35] LABS: ALKALINE PHOSPHATASE 84 U/L (46-116); ALT/SGPT 945 U/L (7.0-40); AST/SGOT 1151 U/L (<34); BILIRUBIN,TOTAL 0.3 MG/DL (0.3-1.2); BLOOD UREA NITROGEN 16 MG/DL (9-23); CALCIUM LEVEL 8.3 MG/DL (8.3-10.6); CARBON DIOXIDE LEVEL 30 MMOL/L (20-31); CHLORIDE LEVEL 106 MMOL/L (98-107); CREATININE FOR GFR 0.71 MG/DL (0.55-1.30); GLOMERULAR FILTRATION RATE > 60.0 (>45); GLUCOSE, FASTING 152 MG/DL (74-106); PHOSPHORUS LEVEL 4.3 MG/DL (2.4-5.1); POTASSIUM SERUM 4.4 MMOL/L (3.5-5.1); SODIUM LEVEL 140 MMOL/L (136-145); TOTAL PROTEIN 5.9 G/DL (5.7-8.2)
[2023-03-18] MEDS ORDERED: FERROUS SULFATE 325MG TAB PO SCH (09:00)
[2023-03-18] MEDS ORDERED: ASCORBIC ACID 500 MG TAB PO SCH (09:00)
[2023-03-18] MEDS ORDERED: ATORVASTATIN 20 MG TAB PO SCH (09:00)
[2023-03-18] MEDS ORDERED: ACET1TAB55 PO (10:11)
[2023-03-18] MEDS ORDERED: OXYC-517 PO (10:11)
[2023-03-18] MEDS ORDERED: ASPI81TAEC PO (10:11)
[2023-03-18] MEDS ORDERED: SENN-188 PO (10:11)
[2023-03-18] MEDS ORDERED: COLA100C5 PO (10:11)
== END 2023-03-18 12:35 | disposition home or self-care (01) ==
LOC: M SDC 08:14 → M RR INP 12:08 → M MS5PR 14:35
PROVIDERS: ADMIT Orthopaedic Surgery; ATTEND Orthopaedic Surgery
DX: M17.12 Unilateral primary osteoarthritis, left knee (principal); E11.9 Type 2 diabetes mellitus without complications; F17.200 Nicotine dependence, unspecified, uncomplicated; K76.0 Fatty (change of) liver, not elsewhere classified; Z88.8 Allergy status to other drugs, medicaments and biological substances; Z79.899 Other long term (current) drug therapy; Z79.82 Long term (current) use of aspirin
CPT/HCPCS: 27447; 36415; 73560; 80053; 80069; 82306; 85027; 85610; 87635; 96365; 96366; 97110; 97161; 97165; 97530; C1776; G0378; J0131; J0690; J1100; J1170; J1815; J2250; J2405; J3010; S2900

== ENCOUNTER → 2023-03-26 | Outpatient (REF) | payer MEDICARE, MEDICAID ==
[~2023-03-26] MED LIST changes: +ACET1TAB55 PO; +ASPI81TAEC PO; +COLA100C5 PO; -LIDOCAINE 2% 100MG/5ML SDV (FOR ANES.) As Ordered ONE; -ONDANSETRON 4MG 2ML VIAL As Ordered ONE; +OXYC-517 PO; -ROCURONIUM BROMIDE 50MG/5ML VIAL As Ordered ONE; -ROPIVA 100MG/KETOR 15MG/EPINEPHRINE 0.3MG IN NS 50ML SYRINGE PA ONE; +SENN-188 PO; -SUGAMMADEX SODIUM 500 MG/5 ML VIAL (BRIDION) As Ordered ONE; -TRANEXAMIC ACID INJection 1,000 MG in NS 100 ML IV ONE; +[UNRECOGNIZED DRUG - REMARK] PO; -ceFAZolin SOD 2 GM in IV 1 EA IV ONE; -propofoL 200 MG/20 ML VIAL As Ordered ONE
[2023-03-26 16:25] LABS: ERYTHROCYTE SEDIMENTATION RATE 93 mm/hr (0-30)
[2023-03-26 16:36] LABS: BASO # 0.1 10^3/uL (0.0-0.2); BASO % 0.6 % (0.0-1.0); EOS # 0.2 10^3/uL (0.0-0.5); EOS % 2.8 % (0.0-3.0); HEMATOCRIT 29.4 % (36.0-47.0); HEMOGLOBIN 9.2 g/dl (12.0-15.5); LYMPH # 2.7 10^3/uL (1.5-5.0); LYMPH % 33.3 % (24.0-44.0); MEAN CORPUSCULAR HEMOGLOBIN 30.3 pg (27.0-33.0); MEAN CORPUSCULAR HGB CONC 31.3 g/dl (32.0-36.5); MEAN CORPUSCULAR VOLUME 96.7 fl (80.0-96.0); MONO # 0.7 10^3/uL (0.0-0.8); MONO % 8.5 % (2.0-8.0); NEUTROPHILS # 4.3 10^3/uL (1.5-8.5); NEUTROPHILS % 53.5 % (36.0-66.0); PLATELET COUNT, AUTOMATED 442 10^3/uL (150-450); RED BLOOD COUNT 3.04 10^6/uL (4.00-5.40)
== END ==
LOC: M SFHCADAM 14:27
PROVIDERS: ATTEND Physician Assistant Medical
DX: L30.9 Dermatitis, unspecified (principal); Z79.899 Other long term (current) drug therapy

== ENCOUNTER → 2023-03-27 | Outpatient (CLI) | payer MEDICARE, MEDICAID | LOC: M SOG 08:06 | PROVIDERS: ATTEND Orthopaedic Surgery | DX: Z47.1 Aftercare following joint replacement surgery (principal); Z96.652 Presence of left artificial knee joint ==

== ENCOUNTER → 2023-06-23 | Outpatient (CLI) | payer MEDICARE, MEDICAID | LOC: M SOG 08:01 | PROVIDERS: ATTEND Orthopaedic Surgery | DX: Z47.1 Aftercare following joint replacement surgery (principal); Z96.652 Presence of left artificial knee joint ==

== ENCOUNTER → 2023-08-27 | Outpatient (CLI) | payer MEDICARE, MEDICAID | LOC: M SOG 11:41 | PROVIDERS: ATTEND Orthopaedic Surgery | DX: Z47.1 Aftercare following joint replacement surgery (principal); Z96.652 Presence of left artificial knee joint ==

== ENCOUNTER → 2023-10-14 | Outpatient (REF) | payer MEDICARE, MEDICAID ==
[2023-10-15 14:45] LABS: APPEARANCE, URINE CLEAR (CLEAR); BACTERIA, URINE AUTO NEGATIVE (NEGATIVE); BILIRUBIN, URINE AUTO NEGATIVE (NEGATIVE); BLOOD, URINE BLOOD NEGATIVE (NEGATIVE); COLOR, URINE YELLOW (YELLOW); GLUCOSE, URINE (UA) AUTO 3+ mg/dL (NEGATIVE); KETONE, URINE AUTO NEGATIVE (NEGATIVE); LEUKOCYTE ESTERASE, URINE AUTO 1+ (NEGATIVE); NITRITE, URINE AUTO NEGATIVE (NEGATIVE); PROTEIN, URINE AUTO NEGATIVE (NEGATIVE); RBC, URINE AUTO 0 /HPF (0-3); SPECIFIC GRAVITY URINE AUTO 1.018 (1.002-1.035); SQUAMOUS EPITHELIAL CELL UR AU 1 /HPF (0-6); UROBILINOGEN, URINE AUTO 0.2 mg/dL (0.0-2.0); WBC, URINE AUTO 2 /HPF (0-3)
== END ==
LOC: M SFHCADAM 15:37
PROVIDERS: ATTEND Physician Assistant
DX: R35.0 Frequency of micturition (principal)

== ENCOUNTER → 2023-11-09 | Outpatient (CLI) | payer MEDICARE, MEDICAID ==
[2023-11-09 16:47] LABS: BASO # 0.1 10^3/uL (0.0-0.2); BASO % 1.4 % (0.0-1.0); EOS # 0.2 10^3/uL (0.0-0.5); EOS % 3.5 % (0.0-3.0); HEMATOCRIT 39.2 % (36.0-47.0); HEMOGLOBIN 12.4 g/dl (12.0-15.5); LYMPH # 2.8 10^3/uL (1.5-5.0); LYMPH % 44.6 % (24.0-44.0); MEAN CORPUSCULAR HEMOGLOBIN 28.2 pg (27.0-33.0); MEAN CORPUSCULAR HGB CONC 31.6 g/dl (32.0-36.5); MEAN CORPUSCULAR VOLUME 89.1 fl (80.0-96.0); MONO # 0.6 10^3/uL (0.0-0.8); MONO % 9.6 % (2.0-8.0); NEUTROPHILS # 2.5 10^3/uL (1.5-8.5); NEUTROPHILS % 40.6 % (36.0-66.0); PLATELET COUNT, AUTOMATED 301 10^3/uL (150-450); WHITE BLOOD COUNT 6.2 10^3/uL (4.0-10.0)
[2023-11-09 17:17] LABS: HEMOGLOBIN A1c 7.3 % (4.0-6.0)
[2023-11-09 17:19] LABS: ALBUMIN 3.6 G/DL (3.2-5.2); ALKALINE PHOSPHATASE 85 U/L (46-116); ALT/SGPT 23 U/L (7.0-40); AST/SGOT 16 U/L (<34); BILIRUBIN,TOTAL 0.4 MG/DL (0.3-1.2); BLOOD UREA NITROGEN 15 MG/DL (9-23); CALCIUM LEVEL 9.2 MG/DL (8.3-10.6); CARBON DIOXIDE LEVEL 29 MMOL/L (20-31); CHLORIDE LEVEL 103 MMOL/L (98-107); CHOLESTEROL LEVEL 212 MG/DL (<200); CHOLESTEROL RISK RATIO 4.36 (<5); GLOMERULAR FILTRATION RATE > 60.0 (>45); GLUCOSE, FASTING 165 MG/DL (74-106); HDL CHOLESTEROL 48.6 MG/DL (>40); LDL CHOLESTEROL 131.8 MG/DL (<100); NON-HDL-C 163.4 MG/DL; POTASSIUM SERUM 4.3 MMOL/L (3.5-5.1); SODIUM LEVEL 137 MMOL/L (136-145); TOTAL PROTEIN 6.9 G/DL (5.7-8.2); TRIGLYCERIDES LEVEL 158 MG/DL (<150)
[2023-11-09 17:21] LABS: FREE T4 0.87 NG/DL (0.89-1.76); THYROID STIMULATING HORMONE 2.526 uIU/ML (0.55-4.78)
== END ==
LOC: M WUC 10:35
PROVIDERS: ATTEND Physician Assistant
DX: E78.00 Pure hypercholesterolemia, unspecified (principal); K76.0 Fatty (change of) liver, not elsewhere classified; F32.1 Major depressive disorder, single episode, moderate; E11.9 Type 2 diabetes mellitus without complications; R35.0 Frequency of micturition

== ENCOUNTER → 2023-12-23 | Outpatient (CLI) | payer MEDICARE, MEDICAID | LOC: M SOG 07:59 | PROVIDERS: ATTEND Orthopaedic Surgery | DX: Z96.652 Presence of left artificial knee joint (principal) ==

== ENCOUNTER 2024-05-13 16:46 | Emergency (ER) | payer MEDICARE, MEDICAID ==
[~2024-05-13] VITALS: Ht 160 cm; Wt 80.0 kg
[~2024-05-13 16:46] MED LIST changes: +GABA-1490 PO; -GABA600T4 PO
[2024-05-13 16:50] VITALS: BP 127/72; TEMP 97.1; O2SAT 98
[2024-05-13] MEDS: KETOROLAC 30 MG/ML 1ML VIAL IM ONE (18:31)
== END 2024-05-13 18:50 | disposition home or self-care (01) ==
LOC: M ED 16:46
DX: S83.92XA Sprain of unspecified site of left knee, initial encounter (principal); W01.0XXA Fall on same level from slipping, tripping and stumbling without subsequent striking against object, initial encounter; E11.9 Type 2 diabetes mellitus without complications; K76.0 Fatty (change of) liver, not elsewhere classified; Y92.9 Unspecified place or not applicable; Y93.89 Activity, other specified; Y99.0 Civilian activity done for income or pay; Z88.8 Allergy status to other drugs, medicaments and biological substances; Z79.02 Long term (current) use of antithrombotics/antiplatelets; Z79.82 Long term (current) use of aspirin; Z79.899 Other long term (current) drug therapy; Z96.652 Presence of left artificial knee joint
CPT/HCPCS: 73564; 96372; 99283; J1885

== ENCOUNTER → 2024-05-16 | Outpatient (CLI) | payer MEDICARE, MEDICAID | LOC: M SOG 13:06 | PROVIDERS: ATTEND Orthopaedic Surgery | DX: M25.561 Pain in right knee (principal) ==

== ENCOUNTER → 2024-06-09 | Outpatient (CLI) | payer MEDICARE, MEDICAID | LOC: M PLAIMG 12:52 | PROVIDERS: ATTEND Orthopaedic Surgery | DX: M24.19 Other articular cartilage disorders, other specified site (principal) ==

== ENCOUNTER → 2024-10-10 | Outpatient (REF) | payer MEDICARE, MEDICAID | LOC: M LAB REF 13:02 | PROVIDERS: ATTEND Orthopaedic Surgery | DX: M17.11 Unilateral primary osteoarthritis, right knee (principal); M25.561 Pain in right knee ==

== ENCOUNTER → 2024-10-10 | Outpatient (CLI) | payer MEDICARE, MEDICAID | LOC: M SOG 15:43 | PROVIDERS: ATTEND Orthopaedic Surgery | DX: M25.561 Pain in right knee (principal) ==

== ENCOUNTER → 2024-10-14 | Outpatient (REF) | payer MEDICARE, MEDICAID ==
[2024-10-14 16:06] LABS: APPEARANCE, URINE CLEAR (CLEAR); BACTERIA, URINE AUTO NEGATIVE (NEGATIVE); BILIRUBIN, URINE AUTO NEGATIVE (NEGATIVE); BLOOD, URINE BLOOD NEGATIVE (NEGATIVE); COLOR, URINE YELLOW (YELLOW); GLUCOSE, URINE (UA) AUTO 3+ mg/dL (NEGATIVE); KETONE, URINE AUTO NEGATIVE (NEGATIVE); LEUKOCYTE ESTERASE, URINE AUTO NEGATIVE (NEGATIVE); NITRITE, URINE AUTO NEGATIVE (NEGATIVE); PROTEIN, URINE AUTO NEGATIVE (NEGATIVE); RBC, URINE AUTO 0 /HPF (0-3); SQUAMOUS EPITHELIAL CELL UR AU 0 /HPF (0-6); UROBILINOGEN, URINE AUTO 0.2 mg/dL (0.0-2.0); WBC, URINE AUTO 0 /HPF (0-3)
== END ==
LOC: M SFHCPLAZ 15:16
DX: N30.00 Acute cystitis without hematuria (principal)

== ENCOUNTER → 2024-10-15 | Outpatient (REF) | payer MEDICARE, MEDICAID | LOC: M LAB REF 10:00 | DX: R19.7 Diarrhea, unspecified (principal) ==

== ENCOUNTER → 2024-10-19 | Outpatient (CLI) | payer MEDICARE, MEDICAID ==
[2024-10-19 13:18] LABS: ALBUMIN 3.5 G/DL (3.2-5.2); BILIRUBIN,TOTAL 0.3 MG/DL (0.3-1.2); CREATININE FOR GFR 0.75 MG/DL (0.55-1.30); GLOMERULAR FILTRATION RATE 87.8 (>45); POTASSIUM SERUM 4.2 MMOL/L (3.5-5.1); TOTAL PROTEIN 7.2 G/DL (5.7-8.2)
== END ==
LOC: M LAB 12:10
DX: R10.2 Pelvic and perineal pain (principal)

== ENCOUNTER → 2024-10-20 | Outpatient (CLI) | payer MEDICARE, MEDICAID ==
[~2024-10-20] MED LIST changes: +ISOVUE-370 76% 100ML VIAL As Ordered ONE
== END ==
LOC: M RAD 06:41
DX: R10.2 Pelvic and perineal pain (principal)
CPT/HCPCS: 74177; Q9967

== ENCOUNTER → 2024-10-24 | Outpatient (CLI) | payer MEDICARE, MEDICAID ==
[~2024-10-24] MED LIST changes: -ISOVUE-370 76% 100ML VIAL As Ordered ONE
[2024-10-24 15:14] LABS: BASO # 0.1 10^3/uL (0.0-0.2); BASO % 0.7 % (0.0-1.0); EOS # 0.1 10^3/uL (0.0-0.5); EOS % 1.8 % (0.0-3.0); HEMATOCRIT 39.3 % (36.0-47.0); HEMOGLOBIN 12.9 g/dl (12.0-15.5); LYMPH # 2.9 10^3/uL (1.5-5.0); LYMPH % 40.6 % (24.0-44.0); MEAN CORPUSCULAR HEMOGLOBIN 30.1 pg (27.0-33.0); MEAN CORPUSCULAR HGB CONC 32.8 g/dl (32.0-36.5); MEAN CORPUSCULAR VOLUME 91.6 fl (80.0-96.0); MONO # 0.6 10^3/uL (0.0-0.8); MONO % 8.3 % (2.0-8.0); NEUTROPHILS # 3.4 10^3/uL (1.5-8.5); NEUTROPHILS % 48.3 % (36.0-66.0); PLATELET COUNT, AUTOMATED 294 10^3/uL (150-450); RED BLOOD COUNT 4.29 10^6/uL (4.00-5.40); WHITE BLOOD COUNT 7.1 10^3/uL (4.0-10.0)
[2024-10-24 15:21] LABS: ERYTHROCYTE SEDIMENTATION RATE 33 mm/hr (0-30)
[2024-10-24 15:28] LABS: INR 0.97; PROTHROMBIN TIME 13.2 SECONDS (12.5-14.5)
[2024-10-24 15:48] LABS: C REACTIVE PROTEIN QUANTITATIV 0.51 MG/DL (<1.0); HEMOGLOBIN A1c 7.2 % (4.0-6.0)
[2024-10-24 15:50] LABS: ALBUMIN 3.7 G/DL (3.2-5.2); ALKALINE PHOSPHATASE 72 U/L (35-104); ALT/SGPT 22 U/L (7.0-40); AST/SGOT 21 U/L (<34); BILIRUBIN,TOTAL 0.4 MG/DL (0.3-1.2); BLOOD UREA NITROGEN 15 MG/DL (9-23); CALCIUM LEVEL 8.9 MG/DL (8.3-10.6); CARBON DIOXIDE LEVEL 28 MMOL/L (20-31); CHLORIDE LEVEL 102 MMOL/L (98-107); CREATININE FOR GFR 0.67 MG/DL (0.55-1.30); GLOMERULAR FILTRATION RATE > 90.0 (>45); GLUCOSE, FASTING 118 MG/DL (74-106); POTASSIUM SERUM 3.9 MMOL/L (3.5-5.1); SODIUM LEVEL 139 MMOL/L (136-145)
== END ==
LOC: M LAB 14:40
PROVIDERS: ATTEND Orthopaedic Surgery
DX: M17.11 Unilateral primary osteoarthritis, right knee (principal); Z79.899 Other long term (current) drug therapy

== ENCOUNTER → 2025-02-07 | Outpatient (CLI) | payer MEDICARE, MEDICAID | LOC: M SOG 06:52 | PROVIDERS: ATTEND Orthopaedic Surgery | DX: M25.561 Pain in right knee (principal); Z96.652 Presence of left artificial knee joint ==

== ENCOUNTER → 2025-02-13 | Outpatient (CLI) | payer MEDICARE, MEDICAID | LOC: M RAD 10:30 | PROVIDERS: ATTEND Orthopaedic Surgery | DX: M17.11 Unilateral primary osteoarthritis, right knee (principal) ==

== ENCOUNTER → 2025-02-13 | Outpatient (CLI) | payer MEDICARE, MEDICAID ==
[2025-02-13 12:02] LABS: ESTIMATED AVERAGE GLUCOSE 163.0 MG/DL (60-110)
[2025-02-13 12:16] LABS: VITAMIN B12 LEVEL 364.0 PG/ML (211-911)
[2025-02-13 12:18] LABS: ALT/SGPT 51.0 U/L (7.0-40); AST/SGOT 44.0 U/L (<34); CALCIUM LEVEL 9.3 MG/DL (8.3-10.6); CARBON DIOXIDE LEVEL 30.0 MMOL/L (20-31); CHLORIDE LEVEL 105.0 MMOL/L (98-107); CHOLESTEROL LEVEL 106.0 MG/DL (<200); CHOLESTEROL RISK RATIO 2.38 (<5); CREATININE FOR GFR 0.78 MG/DL (0.55-1.30); FREE T4 1.05 NG/DL (0.89-1.76); GLOMERULAR FILTRATION RATE 83.7 (>45); LDL CHOLESTEROL 48.0 MG/DL (<100); NON-HDL-C 61.6 MG/DL; POTASSIUM SERUM 4.2 MMOL/L (3.5-5.1); SODIUM LEVEL 144.0 MMOL/L (136-145); TRIGLYCERIDES LEVEL 68.0 MG/DL (<150)
== END ==
LOC: M LAB 10:35
DX: E53.8 Deficiency of other specified B group vitamins (principal); Z13.29 Encounter for screening for other suspected endocrine disorder; E11.9 Type 2 diabetes mellitus without complications; E78.00 Pure hypercholesterolemia, unspecified; M17.11 Unilateral primary osteoarthritis, right knee

== ENCOUNTER → 2025-02-21 | Outpatient (CLI) | payer MEDICARE, MEDICAID ==
[~2025-02-21] MED LIST changes: +ECOT81TA5 PO; +TIRZ2.5P SQ
[2025-02-21 10:54] LABS: BASO # 0.1 10^3/uL (0.0-0.2); BASO % 1.0 % (0.0-1.0); EOS # 0.2 10^3/uL (0.0-0.5); EOS % 2.8 % (0.0-3.0); LYMPH # 2.5 10^3/uL (1.5-5.0); LYMPH % 36.6 % (24.0-44.0); MONO # 0.6 10^3/uL (0.0-0.8); MONO % 9.1 % (2.0-8.0); NEUTROPHILS # 3.4 10^3/uL (1.5-8.5); NEUTROPHILS % 50.4 % (36.0-66.0); PLATELET COUNT, AUTOMATED 310 10^3/uL (150-450)
== END ==
LOC: M PLALAB 08:56
PROVIDERS: ATTEND Student in an Organized Health Care Education/Training Program
DX: Z01.818 Encounter for other preprocedural examination (principal); Z79.899 Other long term (current) drug therapy

== ENCOUNTER 2025-03-06 05:56 | Observation (INO) | payer MEDICARE, MEDICAID ==
[2025-03-06] VITALS (8 sets, daily range): BP systolic 79–124; BP diastolic 46–69; TEMP 97.3–97.9; O2SAT 90–96
[~2025-03-06] VITALS: Ht 160 cm; Wt 71.8 kg
[2025-03-06] MEDS ORDERED: LIDOCAINE 2% 100 MG/5 ML SDV (FOR ANES.) As Ordered ONE (06:56)
[2025-03-06] MEDS ORDERED: MIDAZOLAM INJ 2 MG/2 ML VIAL As Ordered ONE (06:56)
[2025-03-06] MEDS ORDERED: GLYCOPYRROLATE INJ 0.2 MG/ML 2 ML VIAL As Ordered ONE (06:56)
[2025-03-06] MEDS ORDERED: ROCURONIUM BROMIDE 50MG/5ML VIAL As Ordered ONE (07:00)
[2025-03-06] MEDS ORDERED: dexAMETHasone 4 MG/ML 1 ML VIAL As Ordered ONE (07:02)
[2025-03-06] MEDS ORDERED: ONDANSETRON 4MG/2ML VIAL As Ordered ONE (07:02)
[2025-03-06] MEDS: LR 1,000 ML IV SCH ×2 (07:11→21:00)
[2025-03-06] MEDS: ceFAZolin SOD 2 GM IV ONCE IV ONE (07:50)
[2025-03-06] MEDS: TRANEXAMIC ACID 100 MG/ML 10ML VIAL As Ordered ONE (08:05)
[2025-03-06] MEDS ORDERED: HYDROmorphone HCL 2 MG/ML 1 ML VIAL As Ordered ONE (08:07)
[2025-03-06] MEDS ORDERED: SUGAMMADEX SODIUM 200 MG/2 ML VIAL As Ordered ONE (08:07)
[2025-03-06] MEDS ORDERED: KETOROLAC 30 MG/ML 1 ML VIAL As Ordered ONE (08:12)
[2025-03-06] MEDS ORDERED: hydrALAZINE 20 MG/ML 1 ML VIAL As Ordered ONE (08:30)
[2025-03-06] MEDS ORDERED: LABETALOL 100 MG/20 ML VIAL As Ordered ONE (08:45)
[2025-03-06] MEDS: REK 50ML SYRINGE IA ONE (09:55)
[2025-03-06] MEDS ORDERED: PHENYLephrine 500MCG 5ML (100MCG/ML) SYRINGE As Ordered ONE (10:12)
[2025-03-06] MEDS ORDERED: ONDANSETRON 4MG/2ML VIAL IV PRN ×2 (10:20→10:30)
[2025-03-06] MEDS ORDERED: HYDROMORPHONE HCL 0.5 MG/0.5 ML SYRINGE IV PRN (10:20)
[2025-03-06] MEDS ORDERED: SENNA 8.6 MG TAB PO PRN (10:30)
[2025-03-06] MEDS ORDERED: GLUCOSE 4 GM CHEW PO PRN (10:35)
[2025-03-06] MEDS ORDERED: DEXTROSE 50% 50 ML SYRINGE IV PRN (10:35)
[2025-03-06] MEDS ORDERED: GLUCAGON INJ 1 MG VIAL SC PRN (10:35)
[2025-03-06] MEDS: LR 500 ML IV ONE (11:18)
[2025-03-06] MEDS: INSULIN LISPRO (NovoLOG) PER UNIT SC SCH ×2 (12:00→20:37)
[2025-03-06] MEDS: ACETAMINOPHEN 325 MG TAB PO SCH (12:00)
[2025-03-06] MEDS ORDERED: TIRZ5PEN SC (17:19)
[2025-03-06] MEDS ORDERED: SENN-186 PO (17:19)
[2025-03-06] MEDS ORDERED: DOCU100C16 PO (17:20)
[2025-03-06] MEDS ORDERED: CVSTAB PO (17:22)
[2025-03-06] MEDS ORDERED: HOME MED LIST COMPLETE! XX SCH (17:25)
[2025-03-06 17:29] LABS: PLATELET COUNT, AUTOMATED 265 10^3/uL (150-450)
[2025-03-06] MEDS: ceFAZolin SODIUM 2 GM in DEXTROSE 5% (D5W) ADV/MINI-BAG 50 ML IV SCH (17:41)
[2025-03-06] MEDS: NS (Normal Saline) 0.9% 1,000 ML IV ONE (17:43)
[2025-03-06 18:00] LABS: ALT/SGPT 288.0 U/L (7.0-40); AST/SGOT 361.0 U/L (<34); CALCIUM LEVEL 7.9 MG/DL (8.3-10.6); CARBON DIOXIDE LEVEL 26.0 MMOL/L (20-31); CHLORIDE LEVEL 105.0 MMOL/L (98-107); CREATININE FOR GFR 0.79 MG/DL (0.55-1.30); GLOMERULAR FILTRATION RATE 82.5 (>45); POTASSIUM SERUM 4.0 MMOL/L (3.5-5.1); SODIUM LEVEL 136.0 MMOL/L (136-145)
[2025-03-06] MEDS: traZODone 100 MG TAB PO SCH (20:37)
[2025-03-06] MEDS: ASPIRIN 81 MG ENTERIC TABLET PO SCH (20:37)
[2025-03-06] MEDS: DOCUSATE SODIUM 100 MG CAPSULE PO SCH (20:37)
[2025-03-07 01:58] VITALS: BP 108/62; TEMP 97.3; O2SAT 94
[2025-03-07 04:00] VITALS: BP 128/70; TEMP 97.7; O2SAT 94
[2025-03-07 08:06] LABS: PLATELET COUNT, AUTOMATED 271 10^3/uL (150-450)
[2025-03-07 08:37] LABS: ALT/SGPT 245.0 U/L (7.0-40); AST/SGOT 216.0 U/L (<34); CALCIUM LEVEL 8.2 MG/DL (8.3-10.6); CARBON DIOXIDE LEVEL 26.0 MMOL/L (20-31); CHLORIDE LEVEL 104.0 MMOL/L (98-107); CREATININE FOR GFR 0.79 MG/DL (0.55-1.30); GLOMERULAR FILTRATION RATE 82.5 (>45); POTASSIUM SERUM 3.7 MMOL/L (3.5-5.1); SODIUM LEVEL 140.0 MMOL/L (136-145)
[2025-03-07] MEDS: PREGABALIN 75 MG CAP PO SCH (09:00)
[2025-03-07] MEDS: ASCORBIC ACID 500 MG TAB PO SCH (09:00)
[2025-03-07] MEDS: ATORVASTATIN 20 MG TAB PO SCH (09:00)
[2025-03-07] MEDS: FERROUS SULFATE 325 MG TAB PO SCH (09:00)
[2025-03-07] MEDS ORDERED: CELE100C PO (09:11)
[2025-03-07] MEDS ORDERED: ACET32TAB PO (09:11)
[2025-03-07] MEDS ORDERED: OXYC1TAB23 PO (09:12)
[2025-03-07] MEDS ORDERED: CEFD1CAP9 PO (09:12)
== END 2025-03-07 09:32 | disposition home or self-care (01) ==
LOC: M SDC 05:56 → M RR INP 05:57 → M MS5PR 14:00
PROVIDERS: ADMIT Orthopaedic Surgery; ATTEND Orthopaedic Surgery
DX: M17.11 Unilateral primary osteoarthritis, right knee (principal); I10 Essential (primary) hypertension; E78.5 Hyperlipidemia, unspecified; E11.9 Type 2 diabetes mellitus without complications; K76.0 Fatty (change of) liver, not elsewhere classified; F17.290 Nicotine dependence, other tobacco product, uncomplicated; Z71.6 Tobacco abuse counseling; Z96.652 Presence of left artificial knee joint; Z79.82 Long term (current) use of aspirin; Z79.899 Other long term (current) drug therapy; Z88.8 Allergy status to other drugs, medicaments and biological substances; Z90.79 Acquired absence of other genital organ(s)
CPT/HCPCS: 27447; 36415; 73560; 80053; 85027; 88300; 96374; 96376; 97116; 97161; C1776; G0378; J0169; J0360; J0688; J1100; J1171; J1885; J1920; J2250; J2371; J2405; J2795; J3010; S2900

== ENCOUNTER → 2025-03-16 | Outpatient (CLI) | payer MEDICARE, MEDICAID ==
[~2025-03-16] MED LIST changes: +ACET32TAB PO; +CEFD1CAP9 PO; +CELE100C PO; +CVSTAB PO; +DOCU100C16 PO; +OXYC1TAB23 PO; +SENN-186 PO; +TIRZ5PEN SC
== END ==
LOC: M SOG 07:27
PROVIDERS: ATTEND Orthopaedic Surgery
DX: Z96.651 Presence of right artificial knee joint (principal); Z47.1 Aftercare following joint replacement surgery

== ENCOUNTER → 2025-05-23 | Outpatient (CLI) | payer MEDICARE, MEDICAID | LOC: M SOG 07:46 | PROVIDERS: ATTEND Orthopaedic Surgery | DX: Z96.651 Presence of right artificial knee joint (principal); Z47.1 Aftercare following joint replacement surgery ==